=== PATIENT | female | born 2000 | race Caucasian/White ===

== ENCOUNTER 2018-02-04 19:31 | Emergency (ER) | payer MEDICAID, SELFPAY ==
[2018-02-04 19:32] VITALS: BP 125/74; PULSE 85; RESP 18; TEMP 37.6; O2SAT 100; BMI 21.0
--- NOTE | 2018-02-04 22:05 | ED.VISSUMM ---
- ER Visit Summary Date of Service: 02/04/18 Chief Complaint: Sore throat History of Present Illness: The patient is a 17 F presenting with sore throat. She states this started 3 days ago. She has painful swallowing but no difficulty swallowing. She has tried Advil at home. She has subjective fevers. She denies rhinorrhea. She has bilateral ear pain. Denies other complaints. Physical Examination: Vitals are stable. Patient is afebrile. Alert no acute distress. HEENT exam pharyngeal erythema with no exudate. Uvula is midline. TMs are normal bilaterally. Neck is supple. No meningismus Lungs are clear and equal bilaterally. Heart is regular rate and rhythm. Abdomen is soft nontender nondistended. Extremities are unremarkable. Skin is warm and dry. No rash No focal neurologic deficit. Remainder of exam is unremarkable. Emergency Department Course and Treatment: Rapid strep is positive. She is given Bicillin IM. She is given Decadron p.o. She is advised to follow Dr. Webber organisational psychologist for no doc. Advised return ED if worsening complaints. Disposition: Discharge home Impression: Strep pharyngitis This note was generated with [employer] dictation software. It may contain incorrect words, spelling, and punctuation that were not noted in review of the chart prior to signing ED Disposition - Plan for ED Patient: Chief Complaint: Sore Throat Referrals: Care Physician,No Primary [Primary Care Provider] -
--- NOTE | 2018-02-04 22:07 | ED.DEP ---
ED Disposition - Plan for ED Patient: Chief Complaint: Sore Throat Instructions: ED Strep Pharyngitis Conf Referrals: Care Physician,No Primary [Primary Care Provider] - Shruthi Webber MD [COURTESY STAFF PHYSICIAN] -
[2018-02-04] MEDS: Penicillin G Benzathine 1.2 MU/2 ML Syringe IM (22:12)
[2018-02-04 22:16] VITALS: BP 119/79; PULSE 78; RESP 16; O2SAT 99
== END 2018-02-04 22:37 | disposition home or self-care (01) ==
LOC: ED 21:06
PROVIDERS: Emergency Provider Emergency Medicine
DX: J02.0 Streptococcal pharyngitis (principal); Z72.0 Tobacco use
CPT/HCPCS: 87880; 96372; 99283

== ENCOUNTER 2018-04-30 21:40 | Emergency (ER) | payer MEDICAID, SELFPAY ==
[2018-04-30 21:41] VITALS: BP 116/70; PULSE 68; RESP 14; TEMP 36.9; O2SAT 99; BMI 20.5
--- NOTE | 2018-04-30 22:55 | ED.RN ---
PT NAME CALLED TWICE. NO RESPONSE. CHECKED OUTSIDE. PT NOT THERE.
== END 2018-04-30 23:22 | disposition left against medical advice (07) ==
LOC: ED 23:15
PROVIDERS: Emergency Provider Emergency Medicine
DX: M54.9 Dorsalgia, unspecified (principal); Z53.21 Procedure and treatment not carried out due to patient leaving prior to being seen by health care provider

== ENCOUNTER 2018-09-18 20:50 | Emergency (ER) | payer SELFPAY ==
[2018-09-18 20:52] VITALS: BP 120/73; PULSE 87; RESP 14; TEMP 36.7; O2SAT 100; BMI 25.6
[2018-09-18 21:29] LABS: Absolute Lymphocyte Count 2.24 X10^3/ul (0.83-4.51); Absolute Neutrophil Count 7.3 X10^3/uL (2.0-7.7); Basophil# 0.04 X10^3/uL; Basophil% 0.4 % (0-1); Eosinophil# 0.14 X10^3/uL; Eosinophils% 1.3 % (0-5); Hematocrit 42.3 % (37-47); Hemoglobin 14.7 g/dl (12.0-15.0); Lymphocyte # 2.24 X10^3/ul (4.0); Mean Corp Hgb Conc 34.8 g/gl (32-36); Mean Corpuscular Hgb 30.6 pg (27.0-32.0); Mean Corpuscular Volume 88.1 fL (81-99); Mean Platelet Vol. 10.2 fl (6.2-12.0); Monocyte# 0.91 X10^3/uL; Monocyte% 8.5 % (0-10); Neutrophil # 7.32 X10^3/uL (2.7-7.7); Neutrophil % 68.7 % (47-70); Platelet Count 240 K/mm3 (150-450); RBC Distribution Width CV 12.8 % (11.6-14.6); RBC Distribution Width SD 40.9 fl (35.1-43.9); White Blood Count 10.7 K/mm3 (4.4-11.0)
[2018-09-18 21:30] LABS: POSITIVE COUNT NO; POSITIVE DIFFERENTIAL NO; POSITIVE MORPHOLOGY NO
[2018-09-18 21:41] LABS: Anion Gap 8 (5-15); BUN 19 mg/dL (7-18); Calcium,Total 8.7 mg/dL (8.5-10.1); Chloride 110 mmol/L (98-107); Creatinine, Serum 0.86 mg/dL (0.55-1.02); EST Glomerular Filtration Rate 89 mL/min (>60); Est Glom Filt Rate - Afr Amer 108 mL/min (>60); Estimated Creatinine Clearance 90.11 ml/min; Glucose 106 mg/dL (74-106); Potassium 4.2 mmol/L (3.5-5.1); Sodium Level 144 mmol/L (136-145)
[2018-09-18 22:05] LABS: Pregnancy, Serum, hCG Quali. NEGATIVE Negative (0-9 Nonpreg)
[2018-09-18] MEDS: HYDROcodone Bitartrate/Apap 5/325 Tablet PO ×2 (22:48→23:27)
[2018-09-18 22:49] VITALS: BP 111/85; BP 118/63; BP 119/83; PULSE 71; PULSE 81; PULSE 87
[2018-09-18 22:58] LABS: Mucous, Urine 0 SEEN /hpf (<or=2+); Red Blood Cells-Urine 0 SEEN /hpf (0-5); Squamous Epithelial Cells - UA 0 SEEN /hpf (5-10); White Blood Cells 0 SEEN /hpf (0-5)
[2018-09-18 23:02] LABS: Color, Urine Yellow (Yellow); Glucose, Dipstick Normal (Normal); Ketone-Dipstick Negative (Negative); Leukocyte Esterase-Dipstick Negative /ul (Negative); Nitrite-Dipstick Positive (Negative); Occult Blood-Urine 150 /ul (Negative); Protein-Dipstick Negative (Negative); Urine Bilirubin Dipstick Negative (Negative); Urine Clarity Clear (Clear); Urine Urobilinogen Normal (Normal)
[2018-09-18 23:08] LABS: Bacteria 3+ /hpf (None Seen)
--- NOTE | 2018-09-18 23:19 | ED.DCSUM_ITS ---
- ER Visit Summary Date of Service: 09/18/18 Chief Complaint: [Vaginal bleeding] History of Present Illness: The patient is a 18 F [presents the emergency department complaint vaginal bleeding that started yesterday. Patient states that she is been going through a tampon about every hour and 1/2-2 hours. Patient passing some small clots. She describes some lower abdominal pain and back pain. Patient does complain of some urinary frequency as well. Patient states that she had a miscarriage in May of this year. Patient had been on control but stopped taking it in November of this year. She is not sure when her last period was but she states that she really has not been having periods. Patient denies any fevers. Patient does not know if she is . She denies any abnormal vaginal discharge.] Patient denies any vaginal trauma. She rates her pain currently as a 7 out of 10. Physical Examination: [HEENT-PERRLA, EOMI. Cranial nerves II through XII grossly intact. TMs clear. Mucous membranes moist. No adenopathy. Cardiovascular-regular rate and rhythm without murmur or ectopy Lungs-clear to auscultation, chest wall stable without crepitus or subcu emphysema Abdomen-normoactive bowel sounds, soft. Patient has some mild suprapubic tenderness to palpation. There is no rebound, rigidity, or perineal signs. Extremities-intact ?4, normal range of motion, normal pulses, atraumatic] Test Results: [CBC with differential obtained showed a white count 10.7, hemoglobin 14.7, hematocrit 42, platelets 240. Chemistries unremarkable. HCG was negative. Urinalysis was positive for nitrites as well as +3 bacteria but negative for leukocyte esterase and 0 WBCs]. Orthostatic vital signs were negative. Emergency Department Course and Treatment: [Patient was given 1 [place] p.o. Patient was started on Bactrim. A urine culture was sent. Treatment Plan: [Given the patient having frequency and nursing staff stated that the urine did appear cloudy and patient also complaining of some low back pain will cover with 3 days worth of Bactrim.] Disposition: [Discharged home in stable condition. Patient advised to follow-up with Dr. Anabel Cortez within the next 3-5 days. Patient advised to return if persistent heavy bleeding, fever, vomiting, worsening abdominal pain, or condition should worsen anyway.] Impression: [Dysfunctional uterine bleeding UTI] This note was generated with [employer] dictation software. It may contain incorrect words, spelling, and punctuation that were not noted in review of the chart ivonne or to signing ED Disposition - Plan for ED Patient: Chief Complaint: Vag Bleeding Referrals: Care Physician,No Primary [Primary Care Provider] -
--- NOTE | 2018-09-18 23:19 | ED.DEP ---
ED Disposition - Plan for ED Patient: Chief Complaint: Vag Bleeding Instructions: ED Bleed Irregular Vaginal, ED UTI Cystitis Female Prescriptions: Smz/Tmp Ds [Bactrim Ds] 1 tab PO BID #6 tab Referrals: Care Physician,No Primary [Primary Care Provider] - Anabel Cortez MD [STAFF PHYSICIAN] - 3-5 Days
[2018-09-18] MEDS: Smz/Tmp Ds Tablet 1 TABLET PO (23:26)
--- NOTE | 2018-09-18 23:44 | ED.RN ---
PT GIVEN WRITTEN AND VERBAL DISCHARGE INSTRUCTIONS AND HOME GOING PRESCRIPTIONS. PT EDUCATED NOT TO DRIVE WHEN TAKING [place]. PT VERBALIZES UNDERSTANDING AND DENIES ANY FURTHER QUESTIONS. PT IV D/C AND COVERED WITH 2X2 GAUZE AND PAPER TAPE. PT AMBULATES OUT OF DEPT WITH SISTER AND BOYFRIEND.
--- OUTSIDE RECORDS SUMMARY | 2018-12-21 06:33 | XMS RPT_ITS ---
:2000 Author Organization OHIP Care Team Providers Name Role Phone ZEUS LOZADA Attending Unavailable PHYSICIAN, NOT RECORDED Primary Care Unavailable ROSE MARY MARINELLI DO Consulting Unavailable LOZADAZEUS Camacho Attending Unavailable PHYSICIAN, NOT RECORDED Primary Care Unavailable LOZADAZEUS Camacho Attending Unavailable PHYSICIAN, NOT RECORDED Primary Care Unavailable Primay Care Physicia, No Primary Care Unavailable Yuan iNchols Attending Unavailable Primay Care Physicia, No Primary Care Unavailable Fei Soni Attending Unavailable Primay Care Physicia, No Primary Care Unavailable Calli Hernández Attending Unavailable PROBLEMS PROBLEMS No Problem Records FoundPROCEDURES PROCEDURES No Procedure Records FoundRESULTS RESULTS DISCHARGE INSTRUCTION Observed: 09/18/2018 Status: F Source: [place] 11:20 PM [facility] REPOSITORY [facility] Medical Records Department [address] [place] [address] Discharge Instruction 09/18/18 2319 MR#: [id number] Acct: [id number] Name: LASHELL ANGUIANO Rep #: [id number] : 2000 18 From: Yuan Nichols DO PCP: Care Physician, No Primary Status: REG ER ED Disposition - Plan for ED Patient: Chief Complaint: Vag Bleeding Instructions: ED Bleed Irregular Vaginal, ED UTI Cystitis Female Prescriptions: Smz/Tmp Ds [Bactrim Ds] 1 tab PO BID #6 tab Referrals: Care Physician,No Primary [Primary Care Provider] - Anabel Cortez MD [STAFF PHYSICIAN] - 3-5 Days What to do if you have Problems For any increased pain, shortness of breath, bleeding, nausea or vomiting, chest pain, or any unexpected problems, contact your Primary Care Provider. Call [facility] ([phone]) or report to the closest Emergency Room. Call 911 if necessary. 09/18/180 <Electronically signed by Yuan Nichols DO> Date Yuna Nichols DO Cosigner Signature (If Indicated): Date CC: No Primary Care Physician EMERGENCY DEPARTMENT Observed: 09/18/2018 Status: F Source: [place] SUMMARY 11:19 PM [facility] REPOSITORY [facility] Medical Records Department [address] [place] [address] Emergency Department Summary 09/18/18 2315 MR#: [id number] Acct: [id number] Name: LASHELL ANGUIANO Rep #: [id number] : 2000 18 From: Yuan Nichols DO PCP: Jessica Physician, No Primary Status: REG ER - ER Visit Summary Date of Service: 09/18/18 Chief Complaint: [Vaginal bleeding] History of Present Illness: The patient is a 18 F [presents the emergency department complaint vaginal bleeding that started yesterday. Patient states that she is been going through a tampon about every hour and 1/2-2 hours. Patient passing some small clots. She describes some lower abdominal pain and back pain. Patient does complain of some urinary frequency as well. Patient states that she had a miscarriage in May of this year. Patient had been on control but stopped taking it in November of this year. She is not sure when her last period was but she states that she really has not been having periods. Patient denies any fevers. Patient does not know if she is . She denies any abnormal vaginal discharge.] Patient denies any vaginal trauma. She rates her pain currently as a 7 out of 10. Physical Examination: [HEENT-PERRLA, EOMI. Cranial nerves II through XII grossly intact. TMs clear. Mucous membranes moist. No adenopathy. Cardiovascular-regular rate and rhythm without murmur or ectopy Lungs-clear to auscultation, chest wall stable without crepitus or subcu emphysema Abdomen-normoactive bowel sounds, soft. Patient has some mild suprapubic tenderness to palpation. There is no rebound, rigidity, or perineal signs. Extremities-intact 4, normal range of motion, normal pulses, atraumatic] Test Results: [CBC with differential obtained showed a white count 10.7, hemoglobin 14.7, hematocrit 42, platelets 240. Chemistries unremarkable. HCG was negative. Urinalysis was positive for nitrites as well as +3 bacteria but negative for leukocyte esterase and 0 WBCs]. Orthostatic vital signs were negative. Emergency Department Course and Treatment: [Patient was given 1 [place] p.o. Patient was started on Bactrim. A urine culture was sent. Treatment Plan: [Given the patient having frequency and nursing staff stated that the urine did appear cloudy and patient also complaining of some low back pain will cover with 3 days worth of Bactrim.] Disposition: [Discharged home in stable condition. Patient advised to follow-up with Dr. Anabel Cortez within the next 3-5 days. Patient advised to return if persistent heavy bleeding, fever, vomiting, worsening abdominal pain, or condition should worsen anyway.] Impression: [Dysfunctional uterine bleeding UTI] This note was generated with Brandtologyation software. It may contain incorrect words, spelling, and punctuation that were not noted in review of the chart prior to signing ED Disposition - Plan for ED Patient: Chief Complaint: Vag Bleeding Referrals: Care Physician,No Primary [Primary Care Provider] - What to do if you have Problems For any increased pain, shortness of breath, bleeding, nausea or vomiting, chest pain, or any unexpected problems, contact your Primary Care Provider. Call [facility] ([phone]) or report to the closest Emergency Room. Call 911 if necessary. 09/18/18 0669 <Electronically signed by Yuan Nichols DO> Date Yuan Nichols DO Cosigner Signature (If Indicated): Date CC: No Primary Care Physician URINALYSIS, COMPLETE Collected: 09/18/2018 Status: F Source: [place] 10:50 PM [facility] REPOSITORY Order Comment: How was Urine Obtained? REALTIME COURT REPORTER TO SPECIFY TYPE CODE TESTS RESULT OUT OF RANGE REFERENCE UNITS LAB L400.3000 Yellow COLOR Normal Yellow LAB L400.3050 Clear Normal CLARITY Clear LAB L400.3200 Normal mg/dl Normal GLUCOSE, UR Normal LAB L400.3300 Negative mg/dL Normal BILIRUBIN URINE Negative LAB L400.3400 Negative mg/dl Normal KETONE UR Negative LAB L400.3465 1.002-1.030 Normal SP.GR. DIPSTX 1.020 LAB L400.3550 5.0 - 8.0 pH UR Normal 6.0 LAB L400.3600 Negative mg/dl PROT Normal DIPSTX Negative LAB L400.3700 Normal mg/dl Normal UROBILI Normal LAB L400.3750 Negative High NITRITE UR Positive LAB L400.3780 Negative /ul High OCCULT BLOOD-UR 150 LAB L400.3800 Negative /ul LEUK Normal ESTERASE Negative LAB L400.4050 0-5 /hpf WBC 0 Normal SEEN LAB L400.4100 0-5 /hpf 0 Normal RBC-UA SEEN LAB L400.4150 5-10 /hpf SQUAM 0 Normal EPI SEEN LAB L400.4300 None Seen /hpf 3+ Normal BACTERIA LAB L400.4350 <or=2+ /hpf 0 Normal MUCUS, URINE SEEN Performed By: #### L400.0001 #### [facility] [address] [place], [address] Observed: 09/18/2018 Status: F Source: [place] CULTURE, URINE 10:50 PM [facility] REPOSITORY Order Date: 09/18/18 Urine Culture ORGANISM 1: Presumptive E. coli [place] Count >100,000 Presumptive E. coli: REACTION Amoxacillin/Clavulanic Acid $ 16 I Ampicillin $ >=32 R Ampicillin/Sulbactam $ >=32 R Cefazolin $ <=4 S Cefepime $ <=1 S Ceftriaxone $ <=1 S Ciprofloxacin $ <=0.25 S ESBL - Ertapenim $$$ <=0.5 S Gentamicin $ <=1 S Imipenem *NF <=0.25 S Levofloxacin $ <=0.12 S Nitrofurantoin $ <=16 S Piperacillin/Tazobactam $$ <=4 S Tobramycin $ <=1 S Trimethoprim/Sulfametho $ <=20 S (NF) indicates non-formulary drug at [facility]. Approval by Infectious Disease Specialist required before non-formulary drugs may be ordered and/or dispensed. Performed By: #### M100.0650 #### [facility] [address] [place], [address] CBC W/DIFF, AUTOMATED Collected: 09/18/2018 Status: F Source: [place] 9:16 PM [facility] REPOSITORY TYPE CODE TESTS RESULT OUT OF RANGE REFERENCE UNITS LAB L100.1000 4.4-11.0 K/mm3 Normal WBC 10.7 LAB L100.1200 4.2-5.4 M/mm3 Normal RBC 4.80 LAB L100.1300 12.0-15.0 g/dl Normal HGB 14.7 LAB L100.1400 37-47 % Normal HCT 42.3 LAB L100.1500 81-99 fL Normal MCV 88.1 LAB L100.1600 27.0-32.0 pg Normal MCH 30.6 LAB L100.1700 32-36 g/gl Normal MCHC 34.8 LAB L100.1810 11.6-14.6 % Normal RDW CV 12.8 LAB L100.1820 35.1-43.9 fl Normal RDW SD 40.9 LAB L100.1900 150-450 K/mm3 Normal PLT 240 LAB L100.2000 6.2-12.0 fl Normal MPV 10.2 LAB L100.2100 47-70 % Normal NEUT% 68.7 LAB L100.2200 19-41 % Normal LY% 21.0 LAB L100.2300 0-10 % Normal MONO% 8.5 LAB L100.2400 0-5 % Normal EO% 1.3 LAB L100.2500 0-1 % Normal BASO% 0.4 LAB L100.2550 0.0-0.9 % Normal IM GRAN % 0.100 Result Comment: IG% - Immature Granulocytes (promyelocytes, myelocytes and metamyelocytes) > 1% indicates that a LEFT SHIFT is Present. LAB L100.2620 2.0-7.7 X10 3/uL Normal Absolute Neut 7.3 LAB L100.2720 0.83-4.51 X10 3/ul Normal Absolute Lymph 2.24 Performed By: #### L100.0100 #### [facility] [address] [place], [place], [address] BASIC METABOLIC Collected: 09/18/2018 Status: F Source: [place] PROFILE (BMP) 9:16 PM [facility] REPOSITORY TYPE CODE TESTS RESULT OUT OF RANGE REFERENCE UNITS LAB L501.0100 74-106 mg/dL Normal GLU 106 Result Comment: Fasting Glucose result from 100 to 125 mg/dL suggests IMPAIRED HOMEOSTASIS per A.D.A. criteria. Please note revised GLUCOSE reference range effective 2017. LAB L501.1000 7-18 mg/dL High BUN 19 LAB L501.1100 0.55-1.02 mg/dL Normal CREAT,SERUM 0.86 Result Comment: The validity of the calculated GFR AND GFRAA in patients over 70 years has not been determined. Clinical correlation is essential. LAB L501.1110 >60 mL/min Normal EST GFR 89 Result Comment: Non- GFR Calc LAB L501.1115 >60 mL/min Normal EST GFR - AA 108 Result Comment: GFR Calc LAB L501.1255 ml/min Normal Estimated CRCL 90.11 LAB L501.1300 10-20 RATIO High BUN/CRE 22.0 LAB L501.2200 8.5-10 mg/dL Normal .1 CA 8.7 LAB L501.5300 136-14 mmol/L Normal 5 NA 144 LAB L501.5600 3.5-5. mmol/L Normal 1 K 4.2 LAB L501.5900 98-107 mmol/L High CL 110 LAB L501.6100 21.0-3 mmol/L Normal 2.0 CO2 26.0 LAB L501.6200 5-15 Normal GAP 8 Performed By: #### L500.2500 #### [facility] [address] [facility] [place], [address] ,SERUM,HCG QUALI. Collected: Status: F Source: [place] 09/18/2018 9:16 PM [facility] REPOSITORY TYPE CODE TESTS RESULT OUT OF REFERENCE UNITS RANGE LAB L700.6700 =>Qualitative mIU/mL Normal HCG Qual < 1 triggr LAB L700.7000 0-9 Nonpreg Negative Normal HCGSQUAL NEGATIVE Performed By: #### L700.6800 #### [facility] [address] [facility] [place], [address] PROGRESS Observed: 08/25/2018 Status: COMPLETED Source: [place] 2:50 PM [facility] REPOSITORY HNO ID: [id number] Author: Maria Elena Kirk) William Service: (none) Author Type: Physician Information Technology Specialist Type: Progress Notes Filed: 08/25/2018 3:38 PM Note Text: Subjective HPI Patient presents with dysuria and frequency over the past 4 days. She denies any vaginal discharge or drainage. She is sexually active and her partner is here in the room. She denies any concern for STI. They're not using any protection. She denies vomiting or diarrhea. No back pain. No abdominal pain. No fevers. She has not had a UTI in the past. She is not sure when her last menstrual cycle was, it has been longer than one month. There is a chance she could be . Review of Systems Constitutional: Negative. HENT: Negative. Eyes: Negative. Respiratory: Negative. Cardiovascular: Negative. Gastrointestinal: Negative. Genitourinary: Positive for dysuria, frequency and urgency. Negative for flank pain and hematuria. Musculoskeletal: Negative. Skin: Negative. All other systems reviewed and are negative. PAST MEDICAL HISTORY Diagnosis Date - PMH - PAST MEDICAL HISTORY OF 08/01/08 normal color vision - Trichotillomania Current Outpatient Prescriptions: nitrofurantoin monohydrate and macrocrystal (MACROBID) 100 mg capsule Take 1 capsule by mouth twice daily with meals for 7 days. Disp: 14 capsule Rfl: 0 No current facility-administered medications for this visit. PAST SURGICAL HISTORY Procedure Laterality Date - NONE FAMILY HISTORY Problem Relation Age of Onset - Diabetes Paternal Grandmother - Diabetes Paternal Grandfather - Emphysema Maternal Grandfather - other (epilepsy [Other]) Father - Heart Paternal Grandmother - Heart Paternal Grandfather - other (high cholesterol [Other]) Maternal Grandmother - other (Heart Attack [Other]) Maternal Grandfather - COPD Maternal Grandfather - Thyroid Maternal Grandmother - Osteoporosis Maternal Grandmother - other (luekemia [Other]) Paternal Uncle Social History Substance Use Topics - Smoking status: Never Smoker - Smokeless tobacco: Never Used - Alcohol use No BP 102/74 Pulse 78 Temp 36.6 ?C (97.9 ?F) (Left Tympanic) Resp 16 Wt 67.9 kg (149 lb 9.6 oz) SpO2 99% Objective Physical Exam Constitutional: She is oriented to person, place, and time and well-developed, well-nourished, and in no distress. HENT: Head: Normocephalic and atraumatic. Cardiovascular: Normal rate, regular rhythm and normal heart sounds. Pulmonary/Chest: Effort normal. Abdominal: Soft. Bowel sounds are normal. She exhibits no distension and no mass. There is no tenderness. There is no rebound and no guarding. Musculoskeletal: No cva tenderness Neurological: She is alert and oriented to person, place, and time. Skin: Skin is warm and dry. No rash noted. Psychiatric: Affect and judgment normal. Nursing note and vitals reviewed. ASSESSMENT/PLAN: 1. Dysuria - ICD9: 788.1, ICD10: R30.0 (primary diagnosis) acute - UA positive for claudia esterase and hematuria - Send urine for culture - Begin treatment with Macrobid 100 mg BID for 7 days - Patient education for prevention given -I offered to run gonorrhea and chlamydia testing off of her urine however patient declined this. - UA DIP, URINE (POC) - URINE CULTURE 2. Missed menses - ICD9: 626.4, ICD10: N92.6 test here is negative. I discussed if her menstrual cycle so does not come in the next week she may want to use another [id number] test and follow-up her DEAN OF INSTRUCTION. She is agreeable to this. - HCG QUAL UR B/O Maria Elena Phipps PA-C CNOV Observed: 08/25/2018 Status: COMPLETED Source: [place] 2:45 PM [facility] REPOSITORY Office Visit (WSTR) LASHELL ANGUIANO ([id number]) 2000 F Date Time Provider Department 08/25/18 2:45 PM MARIA ELENA PHIPPS (MASOOD) [facility] During your visit today, we recorded the following information about you: Temperature Pulse Respiration Blood pressure 97.9 degrees 78/minute 16/minute 102/74 Weight 67.9 kg Maria Elena Phipps PA-C 08/25/2018 3:38 PM Signed Subjective HPI Patient presents with dysuria and frequency over the past 4 days. She denies any vaginal discharge or drainage. She is sexually active and her partner is here in the room. She denies any concern for STI. They're not using any protection. She denies vomiting or diarrhea. No back pain. No abdominal pain. No fevers. She has not had a UTI in the past. She is not sure when her last menstrual cycle was, it has been longer than one month. There is a chance she could be . Review of Systems Constitutional: Negative. HENT: Negative. Eyes: Negative. Respiratory: Negative. Cardiovascular: Negative. Gastrointestinal: Negative. Genitourinary: Positive for dysuria, frequency and urgency. Negative for flank pain and hematuria. Musculoskeletal: Negative. Skin: Negative. All other systems reviewed and are negative. PAST MEDICAL HISTORY Diagnosis Date - PMH - PAST MEDICAL HISTORY OF 08/01/08 normal color vision - Trichotillomania Current Outpatient Prescriptions: nitrofurantoin monohydrate and macrocrystal (MACROBID) 100 mg capsule Take 1 capsule by mouth twice daily with meals for 7 days. Disp: 14 capsule Rfl: 0 No current facility-administered medications for this visit. PAST SURGICAL HISTORY Procedure Laterality Date - NONE FAMILY HISTORY Problem Relation Age of Onset - Diabetes Paternal Grandmother - Diabetes Paternal Grandfather - Emphysema Maternal Grandfather - other (epilepsy [Other]) Father - Heart Paternal Grandmother - Heart Paternal Grandfather - other (high cholesterol [Other]) Maternal Grandmother - other (Heart Attack [Other]) Maternal Grandfather - COPD Maternal Grandfather - Thyroid Maternal Grandmother - Osteoporosis Maternal Grandmother - other (luekemia [Other]) Paternal Uncle Social History Substance Use Topics - Smoking status: Never Smoker - Smokeless tobacco: Never Used - Alcohol use No BP 102/74 Pulse 78 Temp 36.6 ?C (97.9 ?F) (Left Tympanic) Resp 16 Wt 67.9 kg (149 lb 9.6 oz) SpO2 99% Objective Physical Exam Constitutional: She is oriented to person, place, and time and well-developed, well-nourished, and in no distress. HENT: Head: Normocephalic and atraumatic. Cardiovascular: Normal rate, regular rhythm and normal heart sounds. Pulmonary/Chest: Effort normal. Abdominal: Soft. Bowel sounds are normal. She exhibits no distension and no mass. There is no tenderness. There is no rebound and no guarding. Musculoskeletal: No cva tenderness Neurological: She is alert and oriented to person, place, and time. Skin: Skin is warm and dry. No rash noted. Psychiatric: Affect and judgment normal. Nursing note and vitals reviewed. ASSESSMENT/PLAN: 1. Dysuria - ICD9: 788.1, ICD10: R30.0 (primary diagnosis) acute - UA positive for claudia esterase and hematuria - Send urine for culture - Begin treatment with Macrobid 100 mg BID for 7 days - Patient education for prevention given -I offered to run gonorrhea and chlamydia testing off of her urine however patient declined this. - UA DIP, URINE (POC) - URINE CULTURE 2. Missed menses - ICD9: 626.4, ICD10: N92.6 test here is negative. I discussed if her menstrual cycle so does not come in the next week she may want to use another [id number]-qhi-mlymmrl test and follow-up her DEAN OF INSTRUCTION. She is agreeable to this. - HCG QUAL UR B/O Maria Elena Phipps PA-C Referring Provider: SELF [200] Allergies As of Date: 08/25/2018 (No Known Allergies) Date Reviewed: 08/25/2018 Reviewed by: Edna Conner Ma - Fully Assessed Reason for Visit: Acute Visit [896] Cmt: dysuria Primary Visit Diagnosis:Dysuria [R30.0] Other Visit Diagnosis:Missed menses [N92.6] Order(s):UA DIP, URINE (POC) [[id number]] Order #: [id number] #:[id number] URINE CULTURE [SQURCUL] Order #: [id number] HCG QUAL UR B/O [[id number]] Order #: [id number] nitrofurantoin monohydrate and macrocrystal (MACROBID) 100 mg capsuleTake 1 capsule by mouth twice daily with meals for 7 days.Disp: 14 capsuleRfl: 0 Prescriptions as of 08/25/2018 Sig: NITROFURANTOIN MONOHYDRATE AND * Take 1 capsule by mouth twice* Problem List As Of Date: 08/25/2018 (None) Prescriptions ordered this encounter Disp Refills Start End NITROFURANTOIN MONOHYDRATE AND MACROCR* 14 c* 0 08/25/2018 09/01/2018 Route: ORAL Sig: Take 1 capsule by mouth twice daily with meals for 7 days. Encounter Status:Closed by MARIA ELENA PHIPPS PA-C on 08/25/18 Observed: 08/25/2018 Status: F Source: [place] URINE CULTURE 2:02 PM [facility] REPOSITORY Sp. Request/Comment: - Specimen received in preservative Culture Result - 10,000 - <50,000 CFU/ml Lactose positive gram negative bacilli --> ABNORMAL ALERT Insignificant colony count. No further workup. --> ABNORMAL ALERT 10,000 - <50,000 CFU/ml Normal urogenital tiana Performed By: #### URCUL #### [facility] [address] [place], [place] [address] HCGQ Collected: 05/05/2018 Status: F Source: [facility] 10:51 AM [facility] REPOSITORY Order Comment: please call Dr Rose Mary Marinelli with results TYPE CODE TESTS RESULT OUT OF REFERENCE UNITS RANGE LAB HCGQ(LOINC mIU/mL ) hCG, quantitative 965.0 Result Comment: HCG Quantitative 3 Weeks Gestation mIU/mL 5.0 to 12.0 HCG Quantitative 4 Weeks Gestation mIU/mL 10.0 to 708.0 HCG Quantitative 5 Weeks Gestation mIU/mL 217.0 to 8245.0 HCG Quantitative 6 Weeks Gestation mIU/mL 152.0 to 32,177.0 HCG Quantitative 7 Weeks Gestation mIU/mL 4059.0 to 153,767.0 HCG Quantitative 8 Weeks Gestation mIU/mL 31,366.0 to 149,094.0 HCG Quantitative 9 Weeks Gestation mIU/mL 59,109.0 to 135,901.0 HCG Quantitative 10 Weeks Gestation mIU/mL 44,186.0 to 170,409.0 HCG Quantitative 12 Weeks Gestation mIU/mL 27,107.0 to 201,615.0 HCG Quantitative 14 Weeks Gestation mIU/mL 24,302.0 to 93,646.0 Performed By: #### HCGQ #### [address] [address] HCGQ Collected: 05/04/2018 Status: F Source: [facility] 9:15 AM [facility] REPOSITORY Order Comment: please page Dr. Rose Mary Marinelli with results TYPE CODE TESTS RESULT OUT OF REFERENCE UNITS RANGE LAB HCGQ(LOINC mIU/mL ) hCG, quantitative 1888.0 Result Comment: HCG Quantitative 3 Weeks Gestation mIU/mL 5.0 to 12.0 HCG Quantitative 4 Weeks Gestation mIU/mL 10.0 to 708.0 HCG Quantitative 5 Weeks Gestation mIU/mL 217.0 to 8245.0 HCG Quantitative 6 Weeks Gestation mIU/mL 152.0 to 32,177.0 HCG Quantitative 7 Weeks Gestation mIU/mL 4059.0 to 153,767.0 HCG Quantitative 8 Weeks Gestation mIU/mL 31,366.0 to 149,094.0 HCG Quantitative 9 Weeks Gestation mIU/mL 59,109.0 to 135,901.0 HCG Quantitative 10 Weeks Gestation mIU/mL 44,186.0 to 170,409.0 HCG Quantitative 12 Weeks Gestation mIU/mL 27,107.0 to 201,615.0 HCG Quantitative 14 Weeks Gestation mIU/mL 24,302.0 to 93,646.0 Performed By: #### HCGQ #### [address] [address] ABO/RH RETYPE GEL Collected: 05/03/2018 Status: F Source: [facility] 5:29 AM [facility] REPOSITORY Order Comment: Ordered by Discern TYPE CODE TESTS RESULT OUT OF RANGE REFERENCE UNITS LAB CD:[id number](LOINC) Unknown ABO/Rh O POS Retype Gel Performed By: #### ABORG #### [facility] [address] [place], [place] [address] CTPCR Collected: 05/03/2018 Status: F Source: [facility] 4:09 AM [facility] REPOSITORY TYPE CODE TESTS RESULT OUT OF RANGE REFERENCE UNITS LAB SCCTPCR(LO INC) Chlam Cervix Source LAB CTPCR1(CALVIN Negative NC) Unknown Positive C.trachomati s PCR Result Comment: Molecular (PCR) assay performed on the [employer] Jaclyn 4800 system. LAB CTINT(LOINC) See CT Unknown Interp N C. trachomatis Interp Result Comment: DNA detection by non-culture technique (PCR). Sensitivity testing not available with this method. This organism causes a reportable disease Results have been reported to the [place] [facility] See CT Interp P Performed By: #### CTPCR, NGPCR1 #### [address] [address] NGPCR Collected: 05/03/2018 Status: F Source: [facility] 4:09 AM [facility] REPOSITORY TYPE CODE TESTS RESULT OUT OF REFERENCE UNITS RANGE LAB GCSRC(LOIN C) GC PCR Source Cervix LAB NGPCR(LOIN Negative C) N. gonorrhoeae (PCR) Negative Result Comment: Molecular (PCR) assay performed on the [employer] Jaclyn 4800 System. LAB NGINT(LOINC) See NG Interp N N. gonorrhoeae Interp Result Comment: N. gonorrhoeae DNA not detected. Specimen is presumptive negative for N. gonorrhoeae. A negative result does not preclude Neisseria gonorrhoeae infection because results depend on adequate specimen collection, absence of inhibitors, and sufficient DNA to be detected. See NG Interp N Performed By: #### CTPCR, NGPCR1 #### [place] [address] Observed: 05/03/2018 Status: F Source: [facility] VAGDNA 4:09 AM [facility] REPOSITORY . MICRO - Microbiology PROCEDURE: Affirm Pathogens DNA Direct Probe [*1] SOURCE: Vaginal Fluid BODY SITE: Vagina COLLECTED DATE/TIME: 05/03/2018 04:09 EDT RECEIVED DATE/TIME: 05/03/2018 15:41 EDT START DATE/TIME: 05/03/2018 15:42 EDT FREE TEXT SOURCE: FINAL REPORTS Final Report [] Verified Date/Time/Personnel: 05/04/2018 13:07 EDT Julisa species DNA Probe Negative Trichomonas vaginalis DNA Probe Negative Gardnerella vaginalis DNA Probe Negative Performing Locations *1: This test was performed at: [address], [address] [place] [address] Performed By: #### AFFIRM #### [place] [address] CBC Collected: 05/03/2018 Status: F Source: [facility] 3:47 AM [facility] REPOSITORY TYPE CODE TESTS RESULT OUT OF REFERENCE UNITS RANGE LAB WBC(LOINC) 4.60-10.80 10 3/mcL High WBC 15.50 LAB RBCCT(LOINC 4.20-5.40 10 6/mcL ) RBC 4.46 LAB HGB(LOINC) 12.0-16.0 G/dL Hgb 13.6 LAB HCT(LOINC) 37.0-47.0 % Hct 39.1 LAB MCV(LOINC) 80.0-94.0 fL MCV 87.6 LAB MCH(LOINC) 27.0-31.2 pg MCH 30.6 LAB MCHC(LOINC) 33.0-37.0 G/dL MCHC 34.9 LAB RDW(LOINC) 11.5-14.5 % RDW 14.0 LAB PLT(LOINC) 130-400 10 3/mcL Platelet 227 LAB MPV(LOINC) 7.4-10.4 fL MPV 8.6 Performed By: #### CBC, ADIFF, ANEU, ABOG, ANSG #### [address] [address] #### HCGQ #### [address] [address] .AUTO DIFF Collected: 05/03/2018 Status: F Source: [facility] 3:47 AM [facility] REPOSITORY TYPE CODE TESTS RESULT OUT OF REFERENCE UNITS RANGE LAB ROXANE(LOINC) 37.0-80.0 % Neutrophil % 75.4 LAB LYM(LOINC) 10.0-50.0 % Lymphocyte % 13.9 LAB MON(LOINC) 1.7-13.0 % Monocyte % 9.0 LAB EO(LOINC) 0.0-7.0 % Eosinophil % 1.0 LAB BAS(LOINC) 0.0-2.5 % Basophil % 0.7 LAB ABLYM(LOIN 0.77-3.85 10 3/mcL C) Lymphocyte, 2.20 Absolute LAB ROBBI(LOINC 0.15-1.00 10 3/mcL ) High Monocyte, 1.40 Absolute LAB AEOS(LOINC 0.00-0.40 10 3/mcL ) Eosinophil, 0.20 Absolute LAB ABAS(LOINC 0.00-0.19 10 3/mcL ) Basophil, 0.10 Absolute Performed By: #### CBC, ADIFF, ANEU, ABOG, ANSG #### [place] [address] #### HCGQ #### [place] [address] .NEUABS Collected: 05/03/2018 Status: F Source: [facility] 3:47 AM [facility] REPOSITORY TYPE CODE TESTS RESULT OUT OF REFERENCE UNITS RANGE LAB ANEU(LOINC) 2.85-6.16 10 3/mcL High Neutrophil, 11.70 Absolute Performed By: #### CBC, ADIFF, ANEU, ABOG, ANSG #### [address] [address] #### HCGQ #### [place] [address] GEL ABO Collected: 05/03/2018 Status: F Source: [facility] 3:47 AM [facility] REPOSITORY TYPE CODE TESTS RESULT OUT OF RANGE REFERENCE UNITS LAB ABORH(LOINC ) Unknown ABO/Rh O POS Interp Performed By: #### CBC, ADIFF, ANEU, ABOG, ANSG #### [address] [address] #### HCGQ #### [facility] [address] [place] [address] GEL ABS Collected: 05/03/2018 Status: F Source: [facility] 3:47 AM [facility] REPOSITORY TYPE CODE TESTS RESULT OUT OF REFERENCE UNITS RANGE LAB ANSG(LOINC ) Antibody Negative ABSC Screen Gel Performed By: #### CBC, ADIFF, ANEU, ABOG, ANSG #### [address] [address] #### HCGQ #### [facility] [address] [place] [address] HCGQ Collected: 05/03/2018 Status: F Source: [facility] 3:47 [facility] REPOSITORY TYPE CODE TESTS RESULT OUT OF REFERENCE UNITS RANGE LAB HCGQ(LOINC mIU/mL ) hCG, quantitative 7901.0 Result Comment: HCG Quantitative 3 Weeks Gestation mIU/mL 5.0 to 12.0 HCG Quantitative 4 Weeks Gestation mIU/mL 10.0 to 708.0 HCG Quantitative 5 Weeks Gestation mIU/mL 217.0 to 8245.0 HCG Quantitative 6 Weeks Gestation mIU/mL 152.0 to 32,177.0 HCG Quantitative 7 Weeks Gestation mIU/mL 4059.0 to 153,767.0 HCG Quantitative 8 Weeks Gestation mIU/mL 31,366.0 to 149,094.0 HCG Quantitative 9 Weeks Gestation mIU/mL 59,109.0 to 135,901.0 HCG Quantitative 10 Weeks Gestation mIU/mL 44,186.0 to 170,409.0 HCG Quantitative 12 Weeks Gestation mIU/mL 27,107.0 to 201,615.0 HCG Quantitative 14 Weeks Gestation mIU/mL 24,302.0 to 93,646.0 Performed By: #### CBC, ADIFF, ANEU, ABOG, ANSG #### [address] [address] #### HCGQ #### [place] [id number] [place] [address] PREGU Collected: 05/03/2018 Status: F Source: [facility] 3:19 AM [facility] REPOSITORY TYPE CODE TESTS RESULT OUT OF RANGE REFERENCE UNITS LAB PREGU(LOIN C) Test Positive Urine LAB PRUG1(LOIN C) Unknown test HCG detected. (u) int Performed By: #### PREGU, UA, UAMICAO #### [address] [address] UA Collected: 05/03/2018 Status: F Source: [facility] 3:19 [facility] REPOSITORY TYPE CODE TESTS RESULT OUT OF RANGE REFERENCE UNITS LAB SPCUA(CALVIN NC) UA Specimen Type Clean Catch LAB CLRUA(CALVIN NC) UA Color Yellow LAB APPUA(CAL[place] Clear NC) UA Appear Unknown Cloudy LAB SGUA(LOIN C) UA Spec Grav 1.020 LAB GLUA(LOIN Negative mg/dL C) UA Glucose Negative LAB BILUA(CALV[place] Negative NC) UA Bili Negative LAB KETUA(CALVIN Negative mg/dL NC) UA Ketones Negative LAB BLDUA(CALV[place] Negative NC) UA Blood Unknown Large LAB PHUA(LOIN C) UA pH 6.5 LAB PROUA(CALVIN Negative mg/dL NC) UA Protein Negative LAB UROUA(CALV[place] E.U./dL NC) UA Urobilinogen 0.2 LAB NITUA(CALVIN Negative NC) UA Nitrite Negative LAB LEUUA(CALVIN Negative NC) UA Leuk Est Negative Performed By: #### PREGU, UA, UAMICAO #### [address] [address] .URINALYSIS MICROSCOPIC Collected: 05/03/2018 Status: F Source: [place] ([place]) 3:19 AM [facility] EMERGENCY DEPARTMENT REPOSITORY TYPE CODE TESTS RESULT OUT OF RANGE REFERENCE UNITS LAB WBCUA(LOIN None Seen /hpf C) Unknown UA WBC 0-5 LAB RBCUA(LOIN None Seen /hpf C) Unknown UA RBC LOADED LAB EPIUA(LOIN None Seen /hpf C) Unknown UA Squam Epithelial 0-5 LAB AMOUA(LOIN /hpf C) UA Amorphus 2+ Performed By: #### PREGU, UA, UAMICAO #### [place] [address] [place], [place] [address] EMERGENCY DEPARTMENT Observed: 02/04/2018 Status: F Source: [place] SUMMARY 10:07 PM [facility] REPOSITORY [facility] Medical Records Department [address] [place] [address] Emergency Department Summary 02/04/18 2205 MR#: [id number] Acct: [id number] Name: LASHELL REYES Rep #: [id number] : 2000 17 From: Calli Hernández MD PCP: Jessica Physician, No Primary Status: REG ER - ER Visit Summary Date of Service: 02/04/18 Chief Complaint: Sore throat History of Present Illness: The patient is a 17 F presenting with sore throat. She states this started 3 days ago. She has painful swallowing but no difficulty swallowing. She has tried Advil at home. She has subjective fevers. She denies rhinorrhea. She has bilateral ear pain. Denies other complaints. Physical Examination: Vitals are stable. Patient is afebrile. Alert no acute distress. HEENT exam pharyngeal erythema with no exudate. Uvula is midline. TMs are normal bilaterally. Neck is supple. No meningismus Lungs are clear and equal bilaterally. Heart is regular rate and rhythm. Abdomen is soft nontender nondistended. Extremities are unremarkable. Skin is warm and dry. No rash No focal neurologic deficit. Remainder of exam is unremarkable. Emergency Department Course and Treatment: Rapid strep is positive. She is given Bicillin IM. She is given Decadron p.o. She is advised to follow Dr. Webber process control manager for no doc. Advised return ED if worsening complaints. Disposition: Discharge home Impression: Strep pharyngitis This note was generated with Match dictation software. It may contain incorrect words, spelling, and punctuation that were not noted in review of the chart prior to signing ED Disposition - Plan for ED Patient: Chief Complaint: Sore Throat Referrals: Care Physician,No Primary [Primary Care Provider] - What to do if you have Problems For any increased pain, shortness of breath, bleeding, nausea or vomiting, chest pain, or any unexpected problems, contact your Primary Care Provider. Call [facility] ([phone]) or report to the closest Emergency Room. Call 911 if necessary. 02/04/182206 <Electronically signed by Calli Hernández MD> Date Calli Hernández MD Cosigner Signature (If Indicated): Date CC: No Primary Care Physician DISCHARGE INSTRUCTION Observed: 02/04/2018 Status: F Source: [place] 10:07 PM [facility] REPOSITORY [facility] Medical Records Department [address] [place] [address] Discharge Instruction 02/04/182206 MR#: [id number] Acct: [id number] Name: LASHELL REYES Rep #: [id number] : 2000 17 From: Calli Hernández MD PCP: Care Physician, No Primary Status: REG ER ED Disposition - Plan for ED Patient: Chief Complaint: Sore Throat Instructions: ED Strep Pharyngitis Conf Referrals: Care Physician,No Primary [Primary Care Provider] - Shruthi Webber MD [COURTESY STAFF PHYSICIAN] - What to do if you have Problems For any increased pain, shortness of breath, bleeding, nausea or vomiting, chest pain, or any unexpected problems, contact your Primary Care Provider. Call [facility] ([phone]) or report to the closest Emergency Room. Call 911 if necessary. 02/04/182206 <Electronically signed by Calli Hernández MD> Date Calli Hernández MD Cosigner Signature (If Indicated): Date CC: No Primary Care Physician Observed: 02/04/2018 Status: F Source: [place] STREP A (THROAT 8:50 PM [facility] RAPID REID) REPOSITORY Strep A Rapid Rapid Strep A Screen POSITIVE A Disk (Conf. Cult) Test Not Performed : All NEGATIVE screens will be confirmed with a culture. ORGANISM 1: Streptococcus Group A Performed By: #### M100.676 #### [facility] [address] [place], [address] CNCO Observed: 12/29/2017 Status: COMPLETED Source: [place] 12:00 AM [facility] REPOSITORY Letter Text General Pediatrics, [place] [id number] [facility], [address] [place] [address] December 29, 2017 RE: Lashell Reyes [address] [facility] [id number] 2000 Dear Parent/Guardian of Lashell, We have tried to contact you in regards to your child's Need for Routine Physical Our efforts to reach you have been unsuccessful. Please call [phone] to coordinate your child's plan of care. Thank you and we look forward to talking with you. Sincerely, Primary Care Pediatrics [facility] ALLERGIES ALLERGIES DATE TYPE / CODE NAME / CODE REACTION SEVERITY SOURCE 09/18/2018 Drug No Known Unknown [facility] Allergy/416 Allergies/T46849 Hospital 943319(SNOM 0388(RXNORM) Repository ED CT) Drug NO KNOWN [facility] Class/43516 ALLERGIES [facility] 1003(SNOMED Repository CT) ENCOUNTERS ENCOUNTERS ADMIT/DISCHARGE ACCOUNT NUMBER ADMITTING ENCOUNTER LOCATION SOURCE CLASS 09/18/2018/09/18/20 [id number] Emergency [address] ding:ED Repository 08/25/2018/08/27/20 [id number] Ambulatory [address] Repository 05/05/2018/05/05/20 [id number] Ambulatory [address] ding:[facility] Repository 05/04/2018/05/04/20 [id number] Ambulatory [address] ding:[facility] Repository 05/03/2018/05/03/20 [id number] Emergency BBuilding:ER [address] Repository 04/30/2018/04/30/20 [id number] Emergency [address] ding:ED Repository 02/04/2018/02/05/20 [id number] Emergency [address] ding:ED Repository PAYERS PAYERS ENCOUNTER GUARANTOR PAYER SUBSCRIBER SOURCE 09/18/2018 LASHELL KHNA Primary [place] [id number] Insurance:SELF PAY [facility] [place] Number: Effective Repository [id number]: [phone]) Date:2018-09-18 [phone] (HP) 05/05/2018 [facility] SHORTDOB: Insurance:[employer] SHORTDOB: [facility] [id number] Repository MIKE Number: [place] [id number] [place] [address]Log: [phone]) Date:2018-05-05Tel: () [id number] [phone] ()Tel: Name:SpectrumDNAO [address] [place] [address] () [address]FX: 05/04/2018 [facility] SHORTDOB: Insurance:[employer] SHORTDOB: [facility] [id number] Repository MIKE Number: [place] [id number] [facility] [place], [place] [address]Ipj: [phone]) Date:2018-05-04Tel: ()Tel: [phone] [phone] () Name:[address] () [address] [place] [address] () [id number]: 05/03/2018 [facility] SHORTDOB: Insurance:[facility] SHORTDOB: [facility] [id number] [facility] [id number] Repository MIKE Number: [place] [id number] [address]Msz: ([phone]) Date:2018-05-03 [id number]: () [id number] [phone] ()Tel: Name:BAILEY Gutiérrez [address] [place] [address] () 86[address]CI: 04/30/2018 LASHELL KHAN Primary Insurance:[facility] LASHELL Salvadorg[place] RE[address] [place], [place] [address] [place] Number: [id number] Hospital [id number]: [phone] [id number] Repository [phone] () Date:[id number] [address] [address]AS: 04/30/2018 Secondary NOT GIVENUNK [place] Insurance:SELF PAY [place] Number: Effective Repository Date:2018-04-30 02/04/2018 LASHELL KHAN Primary Insurance:[facility] LASHELL [place] [id number] [facility] [place] Number: [id number] Hospital [address]Zcw: [phone] [id number] Repository [phone] () Date:[id number] [address] [address]RV: 02/04/2018 Secondary NOT GIVENUNK [place] Insurance:SELF PAY [place] Number: Effective Repository Date:2018-02-04
== END 2018-09-18 23:47 | disposition home or self-care (01) ==
PROVIDERS: Emergency Provider Emergency Medicine
DX: N93.9 Abnormal uterine and vaginal bleeding, unspecified (principal); N39.0 Urinary tract infection, site not specified; Z72.0 Tobacco use
CPT/HCPCS: 80048; 81001; 84703; 85025; 87086; 87088; 87186; 99285; A4216

== ENCOUNTER 2018-11-04 18:14 | Emergency (ER) | payer SELFPAY ==
[2018-11-04 18:15] VITALS: BP 125/78; PULSE 79; RESP 18; TEMP 37.1; O2SAT 95; BMI 25.7
--- NOTE | 2018-11-04 19:00 | ED.DCSUM_ITS ---
- ER Visit Summary Date of Service: 11/04/18 Chief Complaint: symptoms History of Present Illness: The patient is a 18 F who has had breast enlargement, breast pain as well as nausea and sensitivity to smell over the past 4 weeks she did a home test and it was negative she wants to make sure. He has no abdominal pain vaginal bleeding flank pain or any other symptoms. Her last menstrual cycle was 4 weeks ago. Physical Examination: Not appear in acute distress. Moist mucous membranes, no obvious facial deformity No C-spine tenderness supple neck. Regular rate and rhythm without any obvious murmurs Clear lungs bilaterally speaking in full sentences without any obvious respiratory distress Abdomen soft and nontender no guarding or rebound Moves all extremities without any difficulty or pain. Skin does not show any obvious rashes or lesions, no trauma. Alert oriented ?3 with no gross focal deficit Emergency Department Course and Treatment: Her hCG is negative we will discharge in stable condition to follow-up with HORTICULTURAL TECHNICAL OFFICER. Disposition: Discharge stable condition Impression: [Requesting test Negative test] This note was generated with [employer] dictation software. It may contain incorrect words, spelling, and punctuation that were not noted in review of the chart prior to signing ED Disposition - Plan for ED Patient: Disposition: Home or Assisted Living Referrals: Neil Abrams MD [STAFF PHYSICIAN] - 3-5 Days Additional Instructions: You are not , follow-up with your HORTICULTURAL TECHNICAL OFFICER doctor for further testing
[2018-11-04 19:07] LABS: Internal QC Validated? YES +Cl - CLEAR BKGD; Pregnancy, Urine Negative Negative
[2018-11-04 19:19] VITALS: RESP 18
== END 2018-11-04 19:24 | disposition home or self-care (01) ==
PROVIDERS: Emergency Provider Emergency Medicine
DX: Z32.02 Encounter for pregnancy test, result negative (principal); N64.4 Mastodynia; R11.0 Nausea; Z72.0 Tobacco use
CPT/HCPCS: 81025; 99282

== ENCOUNTER 2019-04-15 19:19 | Emergency (ER) | payer SELFPAY ==
[2019-04-15 19:20] VITALS: BP 117/68; PULSE 103; RESP 18; TEMP 36.8; O2SAT 99; BMI 25.6
[2019-04-15] MEDS: Lidocaine/Epi/Tetracaine 50 ML 1 APPLIC TOPICAL (20:37)
[2019-04-15] MEDS: HYDROcodone Bitartrate/Apap 5/325 Tablet PO (20:37)
[2019-04-15] MEDS: Smz/Tmp Ds Tablet 1 TABLET PO (20:37)
--- NOTE | 2019-04-15 21:24 | ED.DCSUM_ITS ---
- ER Visit Summary Date of Service: 04/15/19 Chief Complaint: Abscess History of Present Illness: The patient is a 18 F who states for the past 2 to 3 days she has had of a developing worsening abscess in the inguinal region on the anterior left thigh. She never had anything like this before. No fevers. Is painful. Physical Examination: Afebrile vital signs stable There is a cutaneous abscess with fluctuance in the left inguinal region closest to the mons pubis. There is surrounding erythema. It does not extend down onto the labia. Emergency Department Course and Treatment: Let was applied and then local lidocaine instilled into the area. A cross incision was made with expression of a large amount of pus. Wound was probed for loculations irrigated with saline and packed with several inches of quarter inch iodoform gauze. Because of the surrounding erythema I will place her on Bactrim. I will also write for [place]. Impression: 1. Left inguinal abscess 2. Incision and drainage by physician This note was generated with Broota dictation software. It may contain incorrect words, spelling, and punctuation that were not noted in review of the chart prior to signing ED Disposition - Plan for ED Patient: Disposition: Home or Assisted Living Instructions: ABSCESS, Incision and Drainage Prescriptions: Smz/Tmp Ds [Bactrim Ds] 1 tab PO BID #14 tab Prescription Printed Hydrocodone Bitart/Apap 5-325 [[place] 5MG-325MG] 1 tab PO Q6H PRN PRN 3 Days #10 tab PRN Reason: Pain Prescription Printed Referrals: Teofilo Erickson III, MD [STAFF PHYSICIAN] - (in 3 days for wound check) Additional Instructions: You may remove the packing in 48 to 72 hours by yourself or return here for repeat examination to have it removed.
--- NOTE | 2019-04-15 21:30 | ED.RN ---
DR. CRYSTAL PERFORMED I/D WITH SUPERVISION OF DEMETRIUS LAGUNA.
[2019-04-15 21:39] VITALS: BP 116/70; PULSE 72; RESP 16; O2SAT 99
== END 2019-04-15 21:40 | disposition home or self-care (01) ==
PROVIDERS: Emergency Provider Emergency Medicine
DX: L02.214 Cutaneous abscess of groin (principal)
CPT/HCPCS: 10060; 99283

== ENCOUNTER 2019-04-18 23:29 | Emergency (ER) | payer SELFPAY ==
[2019-04-18 23:30] VITALS: BP 119/73; PULSE 84; RESP 18; TEMP 36.6; O2SAT 97; BMI 25.7
--- NOTE | 2019-04-18 23:48 | ED.VISSUMM ---
- ER Visit Summary Date of Service: 04/18/19 Chief Complaint: Packing removal History of Present Illness: The patient is a 18 F who presents for packing removal. Patient had incision and drainage of an abscess 3 days ago. Patient states she has been having some drainage from the area. She admits to some mild nausea. Patient denies any fevers or chills. Patient denies any increase in swelling of the abscess area. Patient denies any increase in redness to the area. Patient states the abscess appears to be healing well. Physical Examination: Vital signs are stable. Patient is afebrile. Patient is in no acute distress. Skin is warm and dry. There is some erythema in the left inguinal area. Packing is in place. There is some mild purulent drainage. There is no inguinal lymphadenopathy noted. Cranial nerves II through XII are intact. There are no focal motor or sensory deficits noted. Emergency Department Course and Treatment: The packing was removed without difficulty. Patient tolerated procedure well. Gauze dressing was applied. Patient was instructed to continue her antibiotics until gone. Patient was instructed to follow-up with her primary care physician in 5 to 7 days. Patient understood and was agreeable with the plan. All questions were answered. Disposition: Discharge home Impression: Packing removal This note was generated with Gentronix dictation software. It may contain incorrect words, spelling, and punctuation that were not noted in review of the chart prior to signing ED Disposition - Plan for ED Patient: Disposition: Home or Assisted Living Diagnosis: Abscess packing removal Instructions: Abscess, Packing Removal Referrals: Care Physician,No Primary [Primary Care Provider] - Ishaan Rhoades MD [NON-STAFF] - 5-7 Days
[2019-04-19 00:35] VITALS: PULSE 85; RESP 16; O2SAT 100
== END 2019-04-19 00:36 | disposition home or self-care (01) ==
LOC: ED 23:55
PROVIDERS: Emergency Provider Emergency Medicine
DX: L02.214 Cutaneous abscess of groin (principal); Z48.01 Encounter for change or removal of surgical wound dressing; R11.0 Nausea; Z72.0 Tobacco use
CPT/HCPCS: 99283

== ENCOUNTER → 2020-07-02 | Outpatient (CLI) | payer MEDICAID, SELFPAY ==
[2020-07-02 14:25] VITALS: BMI 25.7
[2020-07-02 17:54] LABS: Amphetamine Urine VISTA NEGATIVE (<1000 ng/mL); Barbiturate Urine VISTA NEGATIVE (< 200 ng/mL); Benzodiazepine Urine VISTA NEGATIVE (< 200 ng/mL); Cocaine Urine VISTA NEGATIVE (< 300 ng/mL); Ecstacy Urine VISTA NEGATIVE (< 500 ng/mL); Methadone Urine VISTA NEGATIVE (< 300 ng/mL); PCP Urine VISTA NEGATIVE (< 25 ng/mL); THC Urine VISTA POSITIVE (< 50 ng/mL); Vista UDS pH Range 6
[2020-07-06 05:06] LABS: Chlamydia By Nucleic Acid AMP Negative (Negative)
[2020-07-06 14:37] LABS: Gonococcus By Nucleic Acid AMP Negative (Negative)
[2020-07-07 17:17] LABS: HPV Reflexed? NOT INDICATED
== END | disposition home or self-care (01) ==
LOC: LABSPEC 16:40
PROVIDERS: Referring Provider Obstetrics & Gynecology; Visit Provider Obstetrics & Gynecology
DX: Z34.00 Encounter for supervision of normal first pregnancy, unspecified trimester (principal)
CPT/HCPCS: 80307; 87077; 87086; 87088; 87186; 87491; 87591; 88175; G0145

== ENCOUNTER → 2020-07-31 15:25 | Outpatient (CLI) | payer MEDICAID, SELFPAY ==
[2020-07-31 14:47] VITALS: BMI 27.1
[2020-07-31 16:14] LABS: Absolute Lymphocyte Count 2.22 X10^3/uL (0.83-4.51); Absolute Neutrophil Count 7.8 X10^3/uL (2.0-7.7); Basophil# 0.03 X10^3/uL; Basophil% 0.3 % (0-1); Eosinophil# 0.09 X10^3/uL; Eosinophils% 0.8 % (0-5); Lymphocyte # 2.22 X10^3/ul (4.0); Lymphocyte % 20.2 % (19-41); Mean Corp Hgb Conc 34.2 g/dL (32-36); Mean Corpuscular Hgb 30.4 pg (27.0-32.0); Mean Corpuscular Volume 88.8 fL (81-99); Mean Platelet Vol. 10.3 fl (6.2-12.0); Monocyte# 0.85 X10^3/uL; Monocyte% 7.7 % (0-10); NRBC Flagged by Analyzer 0 % (0-5); Neutrophil # 7.76 X10^3/uL (2.7-7.7); Neutrophil % 70.6 % (47-70); Platelet Count 244 K/mm3 (150-450); RBC Distribution Width CV 12.4 % (11.6-14.6); RBC Distribution Width SD 40.3 fl (35.1-43.9); Red Blood Count 4.28 M/mm3 (4.2-5.4)
[2020-07-31 17:02] LABS: NATERA MAILED SPECIMEN
[2020-08-03 09:12] LABS: HIV - WCH Non-Reactive (Nonreactive); Hepatitis B Surface Antigen Non-Reactive (Nonreactive); Hepatitis C Antibody Non-Reactive (Nonreactive)
[2020-08-06 02:11] LABS: Rapid Plasmin Reagin (RPR) NONREACTIVE (NONREACTIVE)
== END ==
PROVIDERS: Referring Provider Obstetrics & Gynecology; Visit Provider Obstetrics & Gynecology
DX: Z34.81 Encounter for supervision of other normal pregnancy, first trimester (principal); Z31.430 Encounter of female for testing for genetic disease carrier status for procreative management
CPT/HCPCS: 36415; 85025; 86592; 86703; 86803; 86850; 86900; 86901; 87340; 88175; G0145

== ENCOUNTER → 2020-08-28 12:18 | Outpatient (CLI) | payer MEDICAID, SELFPAY ==
[2020-08-28 12:07] VITALS: BMI 26.9
== END ==
PROVIDERS: Referring Provider Obstetrics & Gynecology; Visit Provider Obstetrics & Gynecology
DX: Z36.89 Encounter for other specified antenatal screening (principal)
CPT/HCPCS: 36415

== ENCOUNTER → 2020-11-13 16:08 | Outpatient (CLI) | payer MEDICAID, SELFPAY ==
[2020-11-13 15:37] VITALS: BMI 30.7
[2020-11-13 17:10] LABS: Absolute Lymphocyte Count 2.16 X10^3/uL (0.83-4.51); Absolute Neutrophil Count 11.1 X10^3/uL (2.0-7.7); Basophil# 0.06 X10^3/uL; Basophil% 0.4 % (0-1); Eosinophil# 0.13 X10^3/uL; Eosinophils% 0.9 % (0-5); Hematocrit 33.6 % (37-47); Hemoglobin 11.2 g/dL (12.0-15.0); Lymphocyte # 2.16 X10^3/ul (4.0); Lymphocyte % 14.5 % (19-41); Mean Corp Hgb Conc 33.3 g/dL (32-36); Mean Corpuscular Hgb 31.5 pg (27.0-32.0); Mean Corpuscular Volume 94.4 fL (81-99); Mean Platelet Vol. 10.1 fl (6.2-12.0); Monocyte# 1.19 X10^3/uL; NRBC Flagged by Analyzer 0 % (0-5); Neutrophil % 74.7 % (47-70); Platelet Count 258 K/mm3 (150-450); RBC Distribution Width CV 13.3 % (11.6-14.6); RBC Distribution Width SD 45.7 fl (35.1-43.9); Red Blood Count 3.56 M/mm3 (4.2-5.4); White Blood Count 14.9 K/mm3 (4.4-11.0)
[2020-11-13 18:11] LABS: Glucose Challenge Gest 1H 50g 88 mg/dL (70-140)
[2020-11-13 19:07] LABS: Rubella IgG Reactive (Nonreactive)
== END ==
PROVIDERS: Referring Provider Obstetrics & Gynecology; Visit Provider Obstetrics & Gynecology
DX: Z34.90 Encounter for supervision of normal pregnancy, unspecified, unspecified trimester (principal); Z13.1 Encounter for screening for diabetes mellitus
CPT/HCPCS: 36415; 82950; 85025; 86762

== ENCOUNTER → 2020-11-27 | Outpatient (CLI) | payer MEDICAID, SELFPAY ==
[2020-11-27 15:47] VITALS: BMI 31.0
== END | disposition home or self-care (01) ==
LOC: LABSPEC 16:32
PROVIDERS: Referring Provider Obstetrics & Gynecology; Visit Provider Obstetrics & Gynecology
DX: O26.899 Other specified pregnancy related conditions, unspecified trimester (principal); N89.8 Other specified noninflammatory disorders of vagina; Z3A.00 Weeks of gestation of pregnancy not specified
CPT/HCPCS: 87070; 87077; 87186; 87205

== ENCOUNTER → 2021-01-08 | Outpatient (CLI) | payer MEDICAID, SELFPAY ==
[2021-01-08 15:31] VITALS: BMI 34.4
[2021-01-08 19:07] LABS: Amphetamine Urine VISTA NEGATIVE (<1000 ng/mL); Barbiturate Urine VISTA NEGATIVE (< 200 ng/mL); Benzodiazepine Urine VISTA NEGATIVE (< 200 ng/mL); Cocaine Urine VISTA NEGATIVE (< 300 ng/mL); Ecstacy Urine VISTA NEGATIVE (< 500 ng/mL); Methadone Urine VISTA NEGATIVE (< 300 ng/mL); PCP Urine VISTA NEGATIVE (< 25 ng/mL); THC Urine VISTA NEGATIVE (< 50 ng/mL); Vista UDS pH Range 5
== END | disposition home or self-care (01) ==
PROVIDERS: Referring Provider Obstetrics & Gynecology; Visit Provider Obstetrics & Gynecology
DX: F12.10 Cannabis abuse, uncomplicated (principal)
CPT/HCPCS: 80307

== ENCOUNTER 2021-01-12 15:30 | Outpatient (CLI) | payer MEDICAID, SELFPAY ==
[2021-01-08 15:31] VITALS: BMI 34.4
[2021-01-12 15:40] VITALS: BMI 34.7
[2021-01-12 15:51] VITALS: BP 127/75; PULSE 77
[2021-01-12 15:52] VITALS: PULSE 82; O2SAT 96
[2021-01-12 15:53] VITALS: TEMP 37; O2SAT 96
--- NOTE | 2021-01-14 08:01 | OB.TRI.PN ---
Progress Notes Date of Service: 01/12/21 Progress Note: Patient presents for triage evaluation secondary to contractions possible labor no cervical change intermittent contractions false labor FHT: 130 Moderate variability reactive no decelerations category I tracing [place]: Every 5 minutes or more contractions Assessment and plan: False labor reactive NST, reassuring maternal and status patient discharged to home to follow-up scheduled. See problem list details for additional plan information. Multi Select Codes - Urinary/Genital Urinary/Genital CPT Codes: 91197-38 non-stress test Interp
== END 2021-01-12 16:30 | disposition home or self-care (01) ==
LOC: WPOUT 15:38 → WP 15:40
PROVIDERS: Visit Provider Obstetrics & Gynecology
DX: O47.9 False labor, unspecified (principal); Z3A.00 Weeks of gestation of pregnancy not specified
CPT/HCPCS: 59025; 59050; 99218; G0378

== ENCOUNTER → 2021-01-25 14:51 | Outpatient (CLI) | payer MEDICAID, SELFPAY ==
[2020-12-25 15:43] VITALS: BMI 33.2
[2021-01-25 13:19] VITALS: BMI 31.9
== END ==
PROVIDERS: Visit Provider Obstetrics & Gynecology
DX: Z34.93 Encounter for supervision of normal pregnancy, unspecified, third trimester (principal); Z3A.36 36 weeks gestation of pregnancy
CPT/HCPCS: 87635; C9803; U0002

== ENCOUNTER 2021-02-03 13:33 | Inpatient (IN) | payer MEDICAID, SELFPAY ==
[2021-02-03] VITALS (33 sets, daily range): BP systolic 99–136; BP diastolic 54–89; PULSE 67–157; TEMP 36.6–36.9; O2SAT 78–100; BMI 31.9; BMI 37.2
[2021-02-03] MEDS: Lactated Ringers 1,000 ML 50 ML IV (15:31)
[2021-02-03 16:07] LABS: Absolute Lymphocyte Count 2.09 X10^3/uL (0.83-4.51); Absolute Neutrophil Count 8.9 X10^3/uL (2.0-7.7); Basophil# 0.04 X10^3/uL; Basophil% 0.3 % (0-1); Eosinophil# 0.09 X10^3/uL; Eosinophils% 0.8 % (0-5); Hematocrit 38.6 % (37-47); Hemoglobin 12.8 g/dL (12.0-15.0); Lymphocyte # 2.09 X10^3/ul (0.83-4.51); Lymphocyte % 17.6 % (19-41); Mean Corp Hgb Conc 33.2 g/dL (32-36); Mean Corpuscular Hgb 31.1 pg (27.0-32.0); Mean Corpuscular Volume 93.9 fL (81-99); Mean Platelet Vol. 10.7 fl (6.2-12.0); Monocyte# 0.65 X10^3/uL; Monocyte% 5.5 % (0-10); NRBC Flagged by Analyzer 0 % (0-5); Neutrophil # 8.89 X10^3/uL (2.7-7.7); Platelet Count 243 K/mm3 (150-450); RBC Distribution Width CV 14.1 % (11.6-14.6); RBC Distribution Width SD 47.8 fl (35.1-43.9); Red Blood Count 4.11 M/mm3 (4.2-5.4); White Blood Count 11.9 K/mm3 (4.4-11.0)
[2021-02-03] MEDS: 0.9% Normal Saline Single 100 ML IV.SOLN. INTRA-UTER (16:15)
--- NOTE | 2021-02-03 16:50 | HP.PCM.OB_ITS ---
HPI - General General Date of Admission: 02/03/21 HPI Narrative LASHELL ANGUIANO, is a 20 F at 40/3 who presents with contractions. While in triage, patient was found to have 2 late decelerations with periods of minimal variability. heart rate tracing overall reassuring, but decision made to admit patient for induction of labor for category 2 heart rate tracing [facility] Medical History (Updated 02/03/21 @ 16:[address] Magda Malin MD) No significant medical problems Home Medications multivitamin no.47-iron fum 27 mg-folate no.1 1 mg-dha 300 mg capsule 1 cap PO DAILY 07/02/20 [History Last Taken 02/02/21 22:00] evening primrose oil [[place]] mg 02/03/21 [History Last Taken 02/03/21 06:30] Allergy/AdvReac Type Severity Reaction Status Date / Time latex AdvReac Rash Verified 02/03/21 11:31 Surgical History No significant past surgical history Social History household members: family housing: house current occupational status: employed current occupation: [employer] pets and animals: Yes Smoking Status: Current every day smoker second hand exposure: Yes alcohol intake: current substance use type: does not use seatbelt use: always do you feel safe at home: Yes History 2 Elective abortions Hx Para 0 Spontaneous abortions Hx # Term Pregnancies Ectopic pregnancies Hx # Pregnancies Multiple births # of living children Visit Details Expected Delivery Route/Plan by 41 Labor Preferences- CB/BF classes: declines labor support person: Thomas labor intervention preferences: Open to standard interventions pain management options preferred: natural - does not want anything in her back cut cord/dad catch: cord : yes PP control planned: Mirena at PP visit discussed possible routes of delivery and associated risks: discussed possible delivery modalities and possible indications for each including R/B/A of , VAVD, FAVD, and CS. questions answered. special requests: declines spinal in labor - discussed associated risks for general anesthesia Plans flu vaccine: decline tdap vaccine: given rhogam: na LARC form signed: declined movement and labor precautions reviewed. Problem list reviewed and updated with the most current plan of care details and appropriate orders placed. Relevant counseling for the gestational age provided. Continue routine care and follow up unless otherwise noted in visit notes/problem list details OB Flowsheet Initial Weight: Not Recorded Date -?-?-?-?-?-?-?-?-?-?-?-?- EGA Weight BP Urine Prot -?-?-?-?-?-?-?-?-?-?-?-?- Glucose FHR FuHt Pres Dilation -?-?-?-?-?-?-?-?-?-?-?-?- Effaced St Visit Note 07/02/20 -?-?-?-?-?-?-?-?-?-?-?-?- 9w 4d 159 lb -?-?-?-?-?-?-?-?-?-?-?-?- 171 -?-?-?-?-?-?-?-?-?-?-?-?- GP - CRL 20mm co nsistent with LMP. 07/31/20 -?-?-?-?-?-?-?-?-?-?-?-?- 13w 5d 158 lb 2 oz 120/80 Nega tive -?-?-?-?-?-?-?-?-?-?-?-?- Negative 150 -?-?-?-?-?-?-?-?-?-?-?-?- GP - no cramping or bleeding. Has not yet had NOB labs as wanted to wait until has genetic testing. Plans to have done today. GP - no cramping or bleeding . Has not yet had NOB labs as wanted to wait until has genetic testing. Plans to have done today. N/V improved. 08/28/20 -?-?-?-?-?-?-?-?-?-?-?-?- 17w 5d 157 lb 100/80 Negative -?-?-?-?-?-?-?-?-?-?-?-?- Negative 145 -?-?-?-?-?-?-?-?-?-?-?-?- SM- no vb lof cr amping 09/23/20 -?-?-?-?-?-?-?-?-?-?-?-?- 21w 3d 165 lb 8 oz 118/78 Nega tive -?-?-?-?-?-?-?-?-?-?-?-?- Negative 150 -?-?-?-?-?-?-?-?-?-?-?-?- GP - no LOF, VB, DFM. Having round ligament pain - discussed supportive measures. Anatomy scan normal. 09/30/20 -?-?-?-?-?-?-?-?-?-?-?-?- 22w 3d 166 lb 8 oz 120/60 Nega tive -?-?-?-?-?-?-?-?-?-?-?-?- Negative 156 -?-?-?-?-?-?-?-?-?-?-?-?- -work in for v aginal itching and discharge. Denies STD concerns. Good FM. No VB. Exam confirms yeast-OTC monistat 10/23/20 -?-?-?-?-?-?-?-?-?-?-?-?- 25w 5d 173 lb 104/82 Negative -?-?-?-?-?-?-?-?-?-?-?-?- Negative 130 25 -?-?-?-?-?-?-?-?-?-?-?-?- SM- no vb lof go od fm no regular ctx 11/13/20 -?-?-?-?-?-?-?-?-?-?-?-?- 28w 5d 179 lb 126/70 Negative -?-?-?-?-?-?-?-?-?-?-?-?- Negative 145 29 -?-?-?-?-?-?-?-?-?-?-?-?- SM- no vb lof go od fm nor egular ctx cbc gct rubella today 11/27/20 -?-?-?-?-?-?-?-?-?-?-?-?- 30w 5d 181 lb 124/70 -?-?-?-?--?-?-?-?-?-?-?-?- 145 30 -?-?-?-?-?-?-?-?-?-?-?-?- GP - no LOF, VB, DFM, ctx. Reporting yeast symptoms - exam consistent with yeast. Script sent to pharmacy. LARC form signed. 12/11/20 -?-?-?-?-?-?-?-?-?-?-?-?- 32w 5d 188 lb 132/72 Negative -?-?-?-?-?-?-?-?-?-?-?-?- Negative 140 32 -?-?-?-?-?-?-?-?-?-?-?--?- SM- no vb lof go od fm no regular ctx 12/25/20 -?-?-?-?-?-?-?-?-?-?-?-?- 34w 5d 193 lb 8 oz 136/88 -?-?-?-?-?-?-?-?-?-?-?-?- 140 33 -?-?-?-?-?-?-?-?-?-?-?-?- GP - no LOF, VB, DFM, ctx. Discussed labor preferences and routes of delivery. 01/08/21 -?-?-?-?-?-?-?-?-?-?-?-?- 36w 5d 201 lb 108/80 Negative -?-?-?-?-?-?-?-?-?-?-?-?- Negative 140 36 -?-?-?-?-?-?-?-?-?-?-?-?- SM- no vb lof go od fm no regular ctx gbs 01/15/21 -?-?-?-?-?-?-?-?-?-?-?-?- 37w 5d 207 lb 6 oz 128/60 Nega tive -?-?-?-?-?-?-?-?-?-?-?-?- Negative 140 37 0.5 -?-?-?-?-?-?-?-?-?-?-?-?- SM- no vb lof go od fm no reuglar ctx- seen in triage for false labor 01/22/21 -?-?-?-?-?-?-?-?-?-?-?-?- 38w 5d 208 lb 136/80 Negative -?-?-?-?-?-?-?-?-?-?-?-?- Negative 140 38 Cephalic 0 .5 -?-?-?-?-?-?-?-?-?-?-?-?- 50 -3 GP - no LO F, VB, DFM, regular ctx. Denies complaints. 01/25/21 -?-?-?-?-?-?-?-?-?-?-?-?- 39w 1d 210 lb 2 oz 130/80 Nega tive -?-?-?-?-?-?-?-?-?-?-?-?- Negative 155 39 Cephalic 0 .5 -?-?-?-?-?-?-?-?-?-?-?-?- 50 -3 GP - no LO F, VB, DFM, ctx. Discussed IOL at 41w if no labor. 02/03/21 -?-?-?-?-?-?-?-?-?-?-?-?- 40w 3d 216 lb 4 oz 128/78 Nega tive -?-?-?-?-?-?-?-?-?-?-?-?- Negative 130 40 Cephalic 1 -?-?-?-?-?-?-?-?-?-?-?-?- 50 -3 GP- no LOF , VB. Regular ctx overnight/this am. Also not feeling baby move as much. Sent to triage for prolonged monitoring and r/o labor. 02/03/21 -?-?-?-?-?-?-?-?-?-?-?-?- 40w 3d 216 lb 11.43 oz 114/66 -?-?-?-?-?-?-?-?-?-?-?-?- 156 1 -?-?-?-?-?-?-?-?-?-?-?-?- 50 -3 GP - Admit lizeth for induction of labor for Cat II FHT ROS Eyes Eyes: Reports systems reviewed and no addt'l complaints, except as documented ENT HEENT: Reports systems reviewed and no addt'l complaints, except as documented Cardiovascular Cardiovascular: Reports systems reviewed and no addt'l complaints, except as documented Respiratory/Chest Respiratory/Chest: Reports systems reviewed and no addt'l complaints, except as documented Gastrointestinal Gastrointestinal: Reports systems reviewed and no addt'l complaints, except as documented Genitourinary Genitourinary: Reports systems reviewed and no addt'l complaints, except as documented Musculoskeletal Musculoskeletal: Reports systems reviewed and no addt'l complaints, except as documented Integumentary Integumentary: Reports systems reviewed and no addt'l complaints, except as documented Neurologic Neurologic: Reports systems reviewed and no addt'l complaints, except as documented Psychiatric Psychiatric: Reports systems reviewed and no addt'l complaints, except as documented Endocrine Endocrinology: Reports systems reviewed and no addt'l complaints, except as documented Hematologic/Lymphatic Hematologic/Lymphatic: Reports systems reviewed and no addt'l complaints, except as documented Allergic/Immunologic Allergic/Immunologic: Reports systems reviewed and no addt'l complaints, except as documented Vital Signs Vital Signs Vital Signs: 02/03/21 12:04 02/03/21 12:05 Temperature 98.1 F Temperature Source Temporal Pulse Rate 78 76 Blood Pressure 114/66 BP Systolic 114 BP Diastolic 66 Pulse Ox 99 Physical Exam Const alert, oriented x3, no apparent distress, average body habitus, healthy appearing and well nourished HEENT normocephalic and moist oral mucous membranes Head and Scalp: atraumatic Eyes PERRL and EOMs intact bilaterally Neck full ROM Resp normal respiratory effort, no retractions and no use of accessory muscles Cardio regular rate and regular rhythm GI soft to palpation, non-tender and non-distended Extremity normal to inspection and full ROM Skin no rashes or lesions noted Neuro no focal motor deficits and no sensory deficits noted Psych mental status grossly normal, affect normal, speech normal and activity/motor behavior normal Assessment & Plan (1) Encounter for induction of labor: PLAN: 20yo at 40/3 admitted for induction of labor for Cat II FHT due to 2 late decelerations in triage Patient presents IOL, plan management for with wise bulb/pitocin Pain management: . desires natural GBS positive - PCN Management of any complications: none I have reviewed the [facility] and made any clinically relevant updates. (2) GBS (group B streptococcus) UTI complicating : QUALIFIERS: Trimester: third trimester Qualified Code(s): O23.43 - Unspecified infection of urinary tract in , third trimester COMMENT: Will need antibiotics while in labor. Does not need GBS culture later in due to positive result. (3) Marijuana abuse: COMMENT: + tox 07/02/20 (4) Smoking (tobacco) complicating , unspecified trimester: COMMENT: Discussed benefits of cessation. Working on cutting back. (5) Supervision of normal first : QUALIFIERS: Trimester: third trimester Qualified Code(s): Z34.03 - Encounter for supervision of normal first , third trimester COMMENT: PRR WILLIAM: 01/31/2021 martinez Gastelum BF: Thomas (6) : QUALIFIERS: Weeks of gestation: 40 weeks Qualified Code(s): Z3A.40 - 40 weeks gestation of COMMENT: carrier- neg , afp negative, genetic low risk; NL anatomy
[2021-02-03] MEDS: Oxytocin 30 units/NS 500 ml 30 UNITS/500 ML IV.SOLN IV (19:32)
[2021-02-03 19:47] LABS: Amphetamine Urine VISTA NEGATIVE (<1000 ng/mL); Barbiturate Urine VISTA NEGATIVE (< 200 ng/mL); Benzodiazepine Urine VISTA NEGATIVE (< 200 ng/mL); Cocaine Urine VISTA NEGATIVE (< 300 ng/mL); Ecstacy Urine VISTA NEGATIVE (< 500 ng/mL); Methadone Urine VISTA NEGATIVE (< 300 ng/mL); PCP Urine VISTA NEGATIVE (< 25 ng/mL); THC Urine VISTA NEGATIVE (< 50 ng/mL); Vista UDS pH Range 6
[2021-02-03] MEDS: Lactated Ringers 500 ML 999 ML IV (21:26)
[2021-02-03] MEDS: fentaNYL-bupivacaine (epidural) 100 ML BAG EPIDURAL (22:46)
[2021-02-04] VITALS (36 sets, daily range): BP systolic 105–130; BP diastolic 51–73; PULSE 69–95; TEMP 36.7–37.7; O2SAT 85–100
[2021-02-04] MEDS: Lactated Ringers 1,000 ML 200 ML IV ×4 (01:22→18:55)
[2021-02-04] MEDS: fentaNYL-bupivacaine (epidural) 100 ML BAG EPIDURAL ×4 (03:24→19:53)
[2021-02-04] MEDS: Lactated Ringers 500 ML 999 ML IV ×3 (09:50→23:35)
[2021-02-04] MEDS: Amnioinfusion- 0.9% NS 1,000 ML IV.SOLN. INTRA-UTER ×2 (10:10→20:28)
[2021-02-04] MEDS: Ondansetron 4 MG/2 ML Vial IV (11:51)
[2021-02-04] MEDS: Terbutaline 1 MG/ML Vial 0.25 MG SC (21:08)
--- NOTE | 2021-02-04 21:10 | PCM.PN.BLA ---
Progress Note Came to patient bedside due to prolonged decel at 2037 for 6 minutes into the 70s. When I arrived, pitocin was turned off, oxygen was in place, fluid bolus and AI were running, patient was in hands and knees and terbutaline had been administered. Baby returned to baseline. Cervix 9/90/0 and scalp stim obtained with exam. Patient repositioned to high fowlers. Will leave pitocin off for 30 minutes of category 1 then start from 2mu/min. As long as pattern tolerates, will continue to titrate pitocin and recheck in 4 hours or if pattern Cat 2. Patient aware if baby has further similar decels without cervical change, would proceed with .
[2021-02-05] VITALS (20 sets, daily range): BP systolic 99–129; BP diastolic 50–73; PULSE 70–97; RESP 16–18; TEMP 36.1–37.4; O2SAT 96–100
--- NOTE | 2021-02-05 00:01 | PCM.PN.BLA ---
Progress Note Notified by RN of additional prolonged decelerations the deepest of which was into the 70s for 2 minutes. Patient again repositioned the hands and knees, fluid bolus given, Pitocin turned off, oxygen placed. Amnioinfusion already running. After interventions, heart rate tracing shows contractions spaced approximately every 7 minutes and still having intermittently decelerations with periods of minimal variability. Cervix anterior lip, 90% effaced, 0 station. Discussed with patient that given intolerance of labor and inability to augment, I am concerned that even if we are able to restart her to complete dilation her baby is not going to be able to tolerate proportional progress and given that this is her first , she will likely have a prolonged period of time to push before you would be at the point of delivery. Recommend proceeding with primary at this time for category 2 heart rate tracing remote from delivery and inability to augment. The risks, benefits, indications, and alternatives to the procedure were discussed with the patient including bleeding, infection, and visceral or vascular injury. Patient voiced understanding and agreed to proceed. Plan to proceed with primary as soon as possible.
[2021-02-05] MEDS: Sodium Citrate/Citric Acid 30 ML UDC PO (00:05)
[2021-02-05] MEDS: Lactated Ringers 1,000 ML 200 ML IV (00:05)
[2021-02-05] MEDS: Cefazolin 2 GM in 0.9% Normal Saline 100 ML IV (00:09)
--- NOTE | 2021-02-05 01:18 | EX.PCM.OBRPT ---
Problems Associated Problem List Diagnoses (1) S/P section: (2) Encounter for induction of labor: (3) 36 weeks gestation of : (4) GBS (group B streptococcus) UTI complicating : (5) Marijuana abuse: (6) Smoking (tobacco) complicating , unspecified trimester: (7) Supervision of normal first : (8) : Report of Operation (OB) Information WILLIAM Calculator Estimated Delivery Date Method Current WG Current Estimate 01/31/21 LMP (Certain) 40w 5d Other Estimates 02/05/21 Ultrasound #1 40w 0d Final WILLIAM: 01/31/21 Gestational age: 40 Weeks and 5 Days Operative Information Date of Procedure: 02/05/21 Pre-Operative Diagnosis: Term , persistent category 2 heart rate tracing, inability to augment Post-Operative Diagnosis: Same supervisor lime: Sunil Mayers Type of Anesthesia: Epidural Indication Classification: ERNESTO Procedure Type: low transverse Indications: 20-year-old G1, P0 at 40 weeks gestation admitted for induction of labor for category 2 heart rate tracing. Patient was induced with Jolley bulb and Pitocin. Throughout labor, patient had periods of recurrent late and variable decelerations resolved with interventions. She had made cervical change to 9 cm at 9 PM after having a prolonged deceleration and having Pitocin turned off. She again had 2 prolonged decelerations at 1130 followed by recurrent late decelerations which required Pitocin to be discontinued. Given that patient had not made cervical change, the recommendation was made to proceed with a primary for category 2 heart rate tracing remote from delivery and inability to augment. Indications for : Nonreassuring Status Findings Description of Procedure: The patient is a G1, P0 at 40 weeks gestation presented for primary . Spinal anesthesia was placed without difficulty. Jolley catheter was placed. The patient was placed in the dorsal supine position with leftward tilt. Patient was prepped and draped in the normal sterile fashion. Pfannenstiel skin incision was made with the scalpel and carried through to the underlying layer of fascia with the scalpel. Fascia was nicked in the midline and the incision extended laterally. The rectus bellies were dissected off superiorly and inferiorly with out complication both sharply and bluntly. The peritoneum was entered digitally. The incision was stretched and a low transverse uterine incision was made with the scalpel. The 's head was delivered atraumatically followed by the anterior and posterior shoulders without complication the rest of the infant delivered. The cord was clamped and cut and the was handed off to awaiting nurse. The placenta was delivered spontaneously immediately following and was noted to be intact and have a three-vessel cord. The uterus was exteriorized cleared of all clots and debris, and the incision was closed in a double layer closure using #1 Monocryl. The ovaries and fallopian tubes were noted to be within normal limits. The uterus was returned to the maternal abdomen and gutters were cleared of all clots and debris. The peritoneum was closed with 3-0 Monocryl in a running fashion. Gloves were changed prior to fascial closure. Fascia was closed with 0 PDS in a running fashion. Subcutaneous tissue was copiously irrigated and the skin was closed with 3-0 Monocryl in a subcuticular fashion. Mepilex dressing was applied without complication. Patient was taken to recovery in stable condition. Presentation: Positive for Vertex Amniotic Membrane Rupture Type: Artificial Amniotic Fluid Description: Clear Placental Delivery Description: Spontaneous Placenta Disposition: [facility] Specimen(s) Sent to Pathology: Placenta Cord Vessel Description: 3 Vessels Cord Entanglement: None Gender: Male Delayed Cord Clamping: Yes Drain: Jolley to straight drain Esitmated Blood Loss (mL): 700 Medications Given Antibiotic Given: Ancef 2 grams IV x1 and Zithromax 500 mg/5 mL X1 Medications Given After Delivery: IV Pitocin Complications Risks of Surgery Discussed w/Patient: Bleeding, Anesthesia Risks, Infection and Injury to surrounding structure(s) including bowel and bladder Complications: None Procedures Urinary/Genital [id number]: [id number] delivery+ Care([facility])
[2021-02-05] MEDS: Oxytocin 30 units/NS 500 ml 30 UNITS/500 ML IV.SOLN 167 UNITS IV (01:25)
[2021-02-05] MEDS: Ketorolac 30 MG/ML Syringe IV ×4 (02:03→19:36)
[2021-02-05] MEDS: Lactated Ringers 1,000 ML 100 ML IV (03:50)
[2021-02-05] MEDS: Acetaminophen 500 MG Tablet 1000 MG PO ×3 (06:52→17:38)
[2021-02-05] MEDS: Senna/Docusate Sodium 1 Tablet PO (11:42)
[2021-02-05] MEDS: Enoxaparin 40 MG/0.4 ML Syringe SC (13:15)
--- NOTE | 2021-02-05 15:15 | CASEMGMT ---
Social Work Assessment Labor and Delivery Unit Patient Address: [address] [place] [address] [place] [address] Phone number: [phone] Date of Referral: 02.05.2021 Time of Referral: 729 Referred By: Dr. Malin Date of Intervention: 02.05.2021 Time of Intervention: 1514 Reason for Referral: maternal history of THC use, positive early , negative on admission. History obtained from: medical records and mother of baby (MOB) Poli Hobbs; father of baby (FOB) Thomas Reynolds present for part of conversation. Household composition: MOB and FOB live together in a house. Home situation is reported as safe and adequate. Patient's parent/guardian status: MOB is a 20 year old single female, involved with the FOB for the last 3 years. MOB denies any form of abuse, control, intimidation in this relationship. baby is the first child for both. [place], Nirav Reynolds, born on 02.05.2023. Medical History: MOB is G2, P0 to 1 after delivering Nirav via caesarian section. Infant delivered weighing 8 pounds 11 ounces. Apgars 8 and 9 at one and 5 minutes of life. Educational Status: MOB has high school education. Reports ability to read, write, and no issues with learning comprehension. Financial Status: FOB works at [employer] fulltime. MOB is receiving rodriguez assistance through [email or web address], then plans to do work training through [employer] when maternity leave is up.. Infant Supplies: MOB reports to have all needed supplies including bassinet for sleeping, car seat, clothing, diapers, wipes. Planning to breast feed and is getting a breast pump through insurance. Childcare/Caregiver(s): MOB and then help from the FOB. Transportation: No reported issues. Programs/Agencies Involved: Active with [facility] for rodriguez and medical. Had Food but reportedly missed an activity. May reapply. Educated to [facility]. Verbally agreed to [facility] referral. Children Services/Legal Issues: Denies. Behavioral Health Issues: Mental Health History: MOB denies any history. No history of suicidal ideation reported either. Substance Use History: History of marijuana use, with last reported use in July. History of alcohol usage prior to knowledge. FOB referenced MOB drinking whiskey, getting sick which led MOB to take a test. Denies any other illicit drug use history. Smokes tobacco. Family History: Depression and anxiety run in MOB's family, though MOB did not say which family members. FOB acknowledges marijuana use for himself. Drug Screens: Maternal drug screen positive for marijuana on 07.02.2020. Repeat testing in the 3rd trimester on 01.08.2021 and at delivery on 02.03.2021 negative. Family/Social Stressors: No identified stressors. Support Systems: MOB reports to have good support from her mother, FOB's mother, a grandmother, and the FOB. Depression/Shaken Baby/Safe Sleeping : Educated parents to shaken baby preventions, safe sleeping, and mood and anxiety disorders/risk factors/importance of seeking out help and support. ASSESSMENT: Met with MOB in room alone, introducing to self and social work role. During private time, MOB denied any abuse issues in relationship with the FOB, as well as reported okay to talk about all subject matter should the FOB return (had stepped out to get lunch). MOB reports to have needed supplies to care for the baby, to have adequate support at home. FOB will be off of work for a few days, and then there is family around who MOB can call for help if needed. MOB denies continued use of marijuana after first trimester. Educated to recommendation of no marijuana use while breast feeding. MOB expressed understanding. Explored with FOB whether the FOB uses marijuana. FOB reported in the affirmative. Encouraged abstinence, but also encouraged not caring for child while under the influence. Educated to [employer] Act and need to notify children services to substance exposed , that not certain there will be any follow up with family at this point, but if the meconium comes back positive then to expect contact from said agency to check in on how things are going at home. MOB reports to have a positive connection with the baby, to love the baby, and to be thankful the baby was delivered safely. Observed MOB to hold the baby during SW visit. MOB was gentle, appropriate, gazed at and smiled down at the baby. MOB verbally agreed to a [facility] referral. Accepted resource packet for [facility], as well as packet on mood and anxiety disorders. Safe Plan of Care for Baby: MOB reports plan to abstain. Should this change would stop breast feeding. FOB reports would wait until after baby went to bed. Use outside of the house. Discussed with the parents also having a sober person look after the baby. PLAN: MOB and baby to home at discharge. [facility] and children services referrals to be made. Monitor for meconium drug screen results. . -CARIDAD Rain, PEDIATRIC PHYSICIAN
[2021-02-06 01:00] VITALS: BP 120/72; PULSE 76; RESP 16; TEMP 36.3; O2SAT 98
[2021-02-06] MEDS: Acetaminophen 500 MG Tablet 1000 MG PO ×3 (01:02→11:48)
[2021-02-06] MEDS: Ibuprofen 600 MG Tablet PO ×2 (01:02→08:17)
[2021-02-06 05:19] LABS: Hematocrit 29.6 % (37-47); Hemoglobin 9.8 g/dL (12.0-15.0); Mean Corp Hgb Conc 33.1 g/dL (32-36); Mean Corpuscular Hgb 31.4 pg (27.0-32.0); Mean Corpuscular Volume 94.9 fL (81-99); Mean Platelet Vol. 10.4 fl (6.2-12.0); Platelet Count 180 K/mm3 (150-450); RBC Distribution Width CV 14.5 % (11.6-14.6); RBC Distribution Width SD 49.6 fl (35.1-43.9); Red Blood Count 3.12 M/mm3 (4.2-5.4); White Blood Count 15.9 K/mm3 (4.4-11.0)
[2021-02-06 08:16] VITALS: BP 112/67; PULSE 68; RESP 14; TEMP 36.1
--- NOTE | 2021-02-06 09:46 | PN.OBGYN_ITS ---
Subjective Subjective: Patient doing well without complaints. Tolerating PO. Ambulating and voiding without difficulty. Feeding well. Denies chest pain, shortness of breath, calf pain/swelling, fevers, chills, lightheadedness. Objective Data Objective Data Vital Signs: Vital Signs Temp Pulse Resp BP Pulse Ox 97.0 F L 68 14 112/67 98 02/06/21 08:16 02/06/21 08:16 02/06/21 08:16 02/06/21 08:16 02/06/21 01:00 Oxygen Delivery Method Room Air Weight: 216 lb 11.43 oz Body Mass Index (BMI) 37.2 Intake & Output: Intake and Output for Last 24 Hours 02/04/21 02/05/21 02/06/21 23:59 23:59 23:59 Intake Total 6468.52 / 6468.52 2618.34 / 2618.34 Output Total 800 / 800 2450 / 2450 Balance 5668.52 / 5668.52 168.34 / 168.34 Lab / Micro Data Result Diagrams: 02/06/21 05:15 Labs: Laboratory Results - last 24 hr 02/06/21 05:15 WBC 15.9 H RBC 3.12 L Hgb 9.8 L Hct 29.6 L MCV 94.9 MCH 31.4 MCHC 33.1 RDW Std Deviation 49.6 H RDW Coeff of Timi 14.5 Plt Count 180 MPV 10.4 ROS Constitutional Constitutional: Denies fever(s) Cardiovascular Cardiovascular: Denies chest pain, dyspnea or lightheadedness Gastrointestinal Gastrointestinal: Reports abdominal pain; Denies constipation or diarrhea Neurologic Neurologic: Denies dizziness or headache(s) Physical Exam Const alert, oriented x3, no apparent distress, average body habitus, healthy appea ring and well nourished HEENT normocephalic Head and Scalp: atraumatic Eyes PERRL and EOMs intact bilaterally Neck full ROM Lymph Lymphatic: no lymphadenopathy noted Resp normal respiratory effort, no retractions and no use of accessory muscles Cardio regular rate GI soft to palpation, non-tender and non-distended Inspection: incision intact and other (dressing in place) Palpation: other Other Details: fundus firm Extremity normal to inspection and no clubbing, cyanosis or edema Skin no rashes or lesions noted Neuro no focal motor deficits and no sensory deficits noted Psych mental status grossly normal, affect normal and speech normal Assessment & Plan (1) delivery delivered: COMMENT: augmentation for Cat II FHT PLAN: s/p LTCS PPD # 1 1. routine post care 2. breast feeding- support given 3. rh positive 4. rubella immune
--- NOTE | 2021-02-06 09:52 | PCM.DC ---
Discharge Instructions Diet Discharge Diet: No restrictions Activity Discharge Activity: May Not Drive (for 2 weeks or while taking narcotic pain meds.), May Shower and May Take a Tub Bath (in 7 days.) May resume sexual activity in: 4-6 weeks Lifting Restrictions: 20 pounds Additional Activity Instructions:: Nothing in the vagina for 4-6 weeks. You may return to work/school in 6 weeks. Dressing / Incision Call your doctor if your incision/area has: Continuous Slow Oozing, Sudden Increased Bleeding, Increased Pain/ Swelling, Increased Redness and Foul Smelling Discharge Call your doctor if you observe: Fever of 101 or Higher Suture Line Care: Avoid Pulling/Pushing and Avoid Pinching/Bending Follow Up Care Please Follow Up With: Magda Malin MD When: 2 weeks for incision check Test Results: Test results from this visit will be discussed in further detail at your follow-up appointment, if applicable. Discharge Plan Admission Admit Date/Time: 02/03/21 13:33 Primary Reason for Your Visit: Induction for Cat II Attending Provider: Magda Malin Primary Care Provider: Care PhysicianElinor Primary Instructions Patient Instructions: After a Discharge Orders/Prescriptions Prescriptions: New naproxen [naproxen] 500 MG tablet 500 mg PO BID PRN PRN (Reason: Pain) Qty: 30 RF: 1 oxycodone 5 mg capsule 5 mg PO Q6H PRN (Reason: pain) 7 Days Qty: 15 RF: 0 Continued PNV-DHA 27 mg iron-1 mg -300 mg capsule 1 cap PO DAILY RF: 0 Discontinued evening primrose oil [Evening [place]] 500 mg Capsule RF: 0 Referrals / Follow Up: Care PhysicianElinor Primary [Primary Care Provider] - Disposition Disposition (needs filled in before D/C Order can be placed): Home, self care
[2021-02-06] MEDS: Enoxaparin 40 MG/0.4 ML Syringe SC (10:35)
[2021-02-06] MEDS: Senna/Docusate Sodium 1 Tablet PO (10:35)
--- NOTE | 2021-02-08 15:03 | CASEMGMT ---
ocial Work Labor and Delivery Unit Help Me Grow referral completed via the [facility]'s secure web based referral system. Called [facility] ([facility]) [phone], and spoke with Mery at extension [phone]. 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 Reported father of baby endorsement of marijuana use. Brief maternal and histories provided, including strengths present for family. Meconium drug screen pending for baby. No other services requested or indicated, other than monitoring for meconium drug screen. -ARMINDA Rain, COMMUNITY ENGAGEMENT COORDINATOR
== END 2021-02-06 11:37 | disposition home or self-care (01) | DRG 540 ==
LOC: WPOUT 13:34 → WP 02-04 10:34
PROVIDERS: Admitting Provider Obstetrics & Gynecology; Visit Provider Obstetrics & Gynecology
DX: O76 Abnormality in fetal heart rate and rhythm complicating labor and delivery (principal); O99.824 Streptococcus B carrier state complicating childbirth; O99.334 Smoking (tobacco) complicating childbirth; F17.210 Nicotine dependence, cigarettes, uncomplicated; Z3A.40 40 weeks gestation of pregnancy; Z37.0 Single live birth
CPT/HCPCS: 59025; 59050; 80307; 85025; 85027; 86850; 86900; 86901; 99218; 99251; J7030; J7120; G0378; G0463; J2405

== ENCOUNTER 2021-02-07 03:25 | Emergency (ER) | payer MEDICAID, SELFPAY ==
[2021-02-03 11:29] VITALS: BMI 37.2
[2021-02-07 03:27] VITALS: BP 143/71; PULSE 64; RESP 19; TEMP 36.2; O2SAT 99; BMI 42.8
--- NOTE | 2021-02-07 03:30 | ED.RN ---
NO OLD EKGS IN MUSE
[2021-02-07 03:57] VITALS: O2SAT 97
--- NOTE | 2021-02-07 03:57 | CT_ITS ---
STUDY: CT ABDOMEN AND PELVIS WITH CONTRAST REASON FOR EXAM: Female, 20 years old. Abdominal pain RADIATION DOSAGE (If Supplied By Facility): CTDIvol = ( 18.06 ) mGy, DLP = ( 1715.90 ) mGycm TECHNIQUE: Transaxial images were obtained from the dome of the diaphragm to the symphysis pubis without oral contrast. IV 100mL Isovue-370 was administered. Sagittal and coronal images were reconstructed. Individualized dose optimization techniques were used for this CT. COMPARISON: None. FINDINGS: The visualized lung bases demonstrate trace left pleural effusion.. The visualized portions of the heart are within normal limits. Normal liver. Mild periportal edema. The gallbladder is contracted. Normal spleen. Normal pancreas. Normal bilateral adrenal glands. Normal right kidney. Normal left kidney. Normal visualized stomach. Normal small intestine. Normal colon. The appendix is visualized and appears normal. Normal abdominal aorta. Normal inferior vena cava. Normal retroperitoneum. Normal urinary bladder. The uterus is enlarged and heterogeneous in density and demonstrates several internal gas locules. Dilated uterine vessels. Trace adjacent pelvic free fluid. There is small gas locules involving the anterior abdominal wall with areas of fat stranding. Normal osseous structures. CT/Abdomen/Pelvis W IV Cont ONLY IMPRESSION: Enlarged likely uterus with small internal gas locules. Scattered gas locules also visualized within the anterior abdominal wall consistent with section and delivery. No intra-abdominal free air visualized. Endometritis could appear similar and not excluded. Electronically Signed: Benjamin Walton MD at 5:25 EDT Tel , Service support ,
--- NOTE | 2021-02-07 03:57 | EKG12_ITS ---
Test Reason : CP Blood Pressure : / mmHG Vent. Rate : 062 BPM Atrial Rate : 062 BPM P-R Int : 154 ms QRS Dur : 082 ms QT Int : 376 ms P-R-T Axes : 000 071 030 degrees QTc Int : 381 ms Normal sinus rhythm Normal ECG Confirmed by OSCAR PAGE, TAMARA ([id number]), science editor YOLY BRYANT ([id number]) on 02/08/2021 1:18:08 PM Referred By: HILL Confirmed By:TAMARA MOORE MD
--- NOTE | 2021-02-07 03:58 | CT_ITS ---
STUDY: CTA CHEST REASON FOR EXAM: Female, 20 years old. Dyspnea RADIATION DOSAGE (If Supplied By Facility): CTDIvol = ( 18.06 ) mGy, DLP = ( 1715.90 ) mGycm TECHNIQUE: The examination was performed with the intravenous administration of IV 100mL Isovue-370. Post-processing of the angiographic images was performed, with multiplanar reformation and 3D reconstruction. Individualized dose optimization techniques were used for this CT. COMPARISON: None. FINDINGS: Normal enhancement of the main pulmonary artery and right and left pulmonary arteries. Normal enhancement of the bilateral peripheral pulmonary arteries. There is no demonstrated pulmonary embolism. Normal thoracic aorta and visualized great vessels. There is no demonstrated aortic dissection. Normal heart and pericardium. Normal mediastinum. Normal hilar regions. Normal visualized trachea and bronchi. The lungs demonstrate trace left pleural effusion. Normal pleura. Normal chest wall structures. Normal osseous structures. Normal visualized upper abdomen. CT/CTA Chest W/WO Contrast IMPRESSION: No demonstrated pulmonary embolism or arterial dissection. No focal lung consolidative changes. Trace left pleural effusion. Electronically Signed: Benjamin Walton MD at 5:29 EDT Tel , Service support ,
--- NOTE | 2021-02-07 04:02 | EDS_ITS ---
HPI History of Present Illness Chief Complaint: Chest Pain Informant: patient and spouse/S.O. Onset/Context/Timing Onset: Today and Hours (2) Activity at onset: sudden Timing: Continuous Quality: Positive for Sharp Location: Substernal Worsened By: Nothing Relieved By: Nothing Associated Symptoms: Positive for Nausea, Dyspnea and Palpitations; Negative for Vomiting, Diaphoresis, Cough, Fever, Lightheadedness and Acid Reflux Narrative Narrative: Patient presents with chest pain that began approximately 2 hours prior to arrival. Patient states the pain is sharp and is localized to the substernal area. Patient states nothing makes it better nothing makes it worse. Patient admits to some nausea and shortness of breath with this. Patient had a recent 2 days ago. Patient denies any fevers or chills. Patient states she did have an episode today where she was seeing spots in her vision. Patient states this lasted a few seconds then resolved. Patient admits to a mild headache. Patient admits to some palpitations where she feels like her heart is skipping beats. PFSH PFS Medical History delivery delivered No significant medical problems Allergy/AdvReac Type Severity Reaction Status Date / Time latex AdvReac Rash Verified 02/07/21 03:31 Surgical History No significant past surgical history Social History household members: family housing: house current occupational status: employed current occupation: [employer] pets and animals: Yes Smoking Status: Current every day smoker second hand exposure: Yes alcohol intake: current substance use type: does not use seatbelt use: always do you feel safe at home: Yes ROS ROS ED Constitutional Constitutional ED: Denies chills or fever(s) Eyes Eyes: Reports change in vision; Denies blurry vision ENT ENT ED: Denies rhinorrhea or sore throat Cardiovascular Cardiovascular: Reports chest pain and palpitations Respiratory/Chest Respiratory/Chest: Reports dyspnea; Denies cough Gastrointestinal Gastrointestinal: Reports nausea; Denies vomiting Genitourinary Genitourinary ED: Denies dysuria or hematuria Musculoskeletal Musculoskeletal: Reports back pain; Denies neck pain Integumentary Denies abscess or rash Neurologic Neurologic: Reports headache(s); Denies weakness Allergic/Immunologic Allergic/Immunologic ED: Denies mouth swelling or urticaria EXAM Physical Exam Const Vital Signs: 02/07/21 03:27 02/07/21 03:35 02/07/21 03:57 Temperature 97.1 F L Temperature Source Temporal Pulse Rate 64 Respiratory Rate 19 H Respiratory Effort Short of Breath Blood Pressure 143/71 H Blood Pressure Mean 95 Pulse Ox 99 97 Oxygen Delivery Method Room Air Room Air 02/07/21 05:26 02/07/21 05:57 Temperature Temperature Source Pulse Rate 52 L 60 Respiratory Rate 21 H 7 L Respiratory Effort Blood Pressure 136/78 H 131/83 H Blood Pressure Mean 97 Pulse Ox 97 99 Oxygen Delivery Method Room Air Positive well nourished, well developed and obese General Appearance ED: well developed Nutritional Appearance: obese HEENT Reports moist mucous membranes Neck supple and no JVD Resp normal respiratory effort and clear to auscultation bilaterally Effort and Inspection: respiratory distress Cardio regular rate and regular rhythm GI normal to inspection, nondistended, normoactive bowel sounds, soft to palpation and non-distended Palpation: other Other Details: There is some tenderness over the incision. There is slight erythema. There is no warmth. There is no induration. Extremity normal to inspection General Extremety ED: Negative for tenderness Neuro oriented x3, CN's II-XII intact bilaterally and no sensory deficits noted Sensorium / Orientation: awake and alert Motor Exam: strength 5/5 throughout MDM MDM MDM Narrative Medical decision making narrative: Patient was given aspirin. Patient was given IV fluids. EKG was obtained. On my interpretation, it showed a normal sinus rhythm with a rate of 62. MS interval, QRS interval, and QTc intervals were all normal. [place] was normal. There are no acute ST or T wave changes. CBC shows a slight leukocytosis of 13.6. Comprehensive metabolic profile and lactate were obtained were all within normal limits. Urinalysis does not show any evidence of urinary tract infection. CT scan of the abdomen and pelvis was obtained with IV contrast. There is status post changes. CTA of the chest was obtained. There is no evidence of pulmonary embolism. Patient refused COVID-19 rapid antigen test. Patient states she had one done recently and was negative. Patient was advised of her findings. Patient has a HEART score of 1. Patient was advised that this is low risk for acute cardiac event. Patient was instructed to follow-up with her METER SUPERVISOR in 3 to 5 days. Patient was instructed to return if worse in any way. Patient understood and was agreeable with the plan. All questions were answered. Lab Data Attestation: I reviewed the patient's lab results. Labs: Laboratory Results - last 24 hr 02/07/21 02/07/21 02/07/21 03:40 03:40 04:25 WBC 13.6 H RBC 3.11 L Hgb 9.6 L Hct 29.4 L MCV 94.5 MCH 30.9 MCHC 32.7 RDW Std Deviation 48.4 H RDW Coeff of [place] 14.1 Plt Count 210 MPV 10.8 Immature Gran % (Auto) 0.600 Neut % (Auto) 73.7 H Lymph % (Auto) 18.2 L [place] % (Auto) 6.0 Eos % (Auto) 1.0 Baso % (Auto) 0.5 Absolute Neuts (auto) 10.0 H Absolute Lymphs (auto) 2.48 Nucleated RBC % 0 Sodium 142 Potassium 4.2 Chloride 110 H Carbon Dioxide 26.0 Anion Gap 6 BUN 23 H Creatinine 1.09 H Estim Creat Clear Calc 69.91 Est GFR (MDRD) Af Amer 80 Est GFR (MDRD) Non-Af 66 BUN/Creatinine Ratio 21.1 H Glucose 78 Lactic Acid 1.0 Calcium 8.9 Total Bilirubin 0.20 AST 35 ALT 26 Alkaline Phosphatase 123 H Total Protein 5.8 L Albumin 2.1 L Globulin 3.7 Albumin/Globulin Ratio 0.6 L Urine Color Urine Clarity Urine pH Ur Specific [place] Urine Protein Urine Glucose (UA) Urine Ketones Urine Occult Blood Urine Nitrite Urine Bilirubin Urine Urobilinogen Ur Leukocyte Esterase Urine RBC Urine WBC Ur Squamous Epith Cells Ur Transition Epith Cell Urine Bacteria Urine Mucus 02/07/21 04:25 WBC RBC Hgb Hct MCV MCH MCHC RDW Std Deviation RDW Coeff of [place] Plt Count MPV Immature Gran % (Auto) Neut % (Auto) Lymph % (Auto) [place] % (Auto) Eos % (Auto) Baso % (Auto) Absolute Neuts (auto) Absolute Lymphs (auto) Nucleated RBC % Sodium Potassium Chloride Carbon Dioxide Anion Gap BUN Creatinine Estim Creat Clear Calc Est GFR (MDRD) Af Amer Est GFR (MDRD) Non-Af BUN/Creatinine Ratio Glucose Lactic Acid Calcium Total Bilirubin AST ALT Alkaline Phosphatase Total Protein Albumin Globulin Albumin/Globulin Ratio Urine Color Yellow Urine Clarity Cloudy Urine pH 6.0 Ur Specific [place] 1.010 Urine Protein 30 H Urine Glucose (UA) Normal Urine Ketones Negative Urine Occult Blood 250 H Urine Nitrite Negative Urine Bilirubin Negative Urine Urobilinogen Normal Ur Leukocyte Esterase 100 H Urine RBC 10-25 SEEN Urine WBC 5-10 SEEN Ur Squamous Epith Cells 0-5 SEEN Ur Transition Epith Cell 0-5 SEEN Urine Bacteria 0 SEEN Urine Mucus 0 SEEN Radiography Diagnostic Testing: Radiology Impression Abdomen/Pelvis CT 02/07/21 03:57 IMPRESSION: Enlarged likely uterus with small internal gas locules. Scattered gas locules also visualized within the anterior abdominal wall consistent with section and delivery. No intra-abdominal free air visualized. Endometritis could appear similar and not excluded. Electronically Signed: Benjamin Walton MD at 5:25 EDT Tel , Service support , Chest CTA 02/07/21 03:58 IMPRESSION: No demonstrated pulmonary embolism or arterial dissection. No focal lung consolidative changes. Trace left pleural effusion. Electronically Signed: Benjamin Walton MD at 5:29 EDT Tel , Service support , EKG Initial EKG: Attestation: I personally reviewed and interpreted this EKG as follows: Interpretation: Sinus Rhythm (62) and No Acute Injury Pattern Prior: No Prior Discharge Plan Triage Chief Complaint: Chest Pain ED Provider: Orestes Sierra Dx/Rx/DC Orders Clinical Impression: Chest pain of uncertain etiology Instructions: ED Chest Pain, Uncertain Cause Primary Care Provider: Care Physician,No Primary Referrals: Magda Malin MD [STAFF PHYSICIAN] - 3-5 Days Care Physician,No Primary [Primary Care Provider] - Disposition Disposition: Home, self care Discharge Date/Time: 02/07/21 05:57
[2021-02-07 04:06] LABS: Absolute Lymphocyte Count 2.48 X10^3/uL (0.83-4.51); Basophil# 0.07 X10^3/uL; Basophil% 0.5 % (0-1); Eosinophil# 0.14 X10^3/uL; Hematocrit 29.4 % (37-47); Hemoglobin 9.6 g/dL (12.0-15.0); Lymphocyte # 2.48 X10^3/ul (0.83-4.51); Lymphocyte % 18.2 % (19-41); Mean Corp Hgb Conc 32.7 g/dL (32-36); Mean Corpuscular Hgb 30.9 pg (27.0-32.0); Mean Corpuscular Volume 94.5 fL (81-99); Mean Platelet Vol. 10.8 fl (6.2-12.0); Monocyte# 0.81 X10^3/uL; NRBC Flagged by Analyzer 0 % (0-5); Neutrophil # 10.01 X10^3/uL (2.7-7.7); Neutrophil % 73.7 % (47-70); Platelet Count 210 K/mm3 (150-450); RBC Distribution Width CV 14.1 % (11.6-14.6); RBC Distribution Width SD 48.4 fl (35.1-43.9); Red Blood Count 3.11 M/mm3 (4.2-5.4); White Blood Count 13.6 K/mm3 (4.4-11.0)
[2021-02-07 04:18] LABS: ALB/GLOB Ratio 0.6 RATIO (0.9-2.4); AST(SGOT) 35 U/L (15-37); Alanine Aminotransfer ALT/SGPT 26 U/L (13-56); Albumin, Serum 2.1 g/dL (3.2-5.0); Alkaline Phosphatase 123 U/L (45-117); Anion Gap 6 (5-15); BUN 23 mg/dL (7-18); BUN/Creat Ratio 21.1 RATIO (10-20); Calcium,Total 8.9 mg/dL (8.5-10.1); Chloride 110 mmol/L (98-107); Creatinine, Serum 1.09 mg/dL (0.55-1.02); EST Glomerular Filtration Rate 66 mL/min (>60); Est Glom Filt Rate - Afr Amer 80 mL/min (>60); Estimated Creatinine Clearance 69.91 ml/min; Globulin 3.7 g/dL (2.2-4.2); Glucose 78 mg/dL (74-106); Potassium 4.2 mmol/L (3.5-5.1); Protein, Total 5.8 g/dL (6.4-8.2); Sodium Level 142 mmol/L (136-145)
[2021-02-07] MEDS: Aspirin 81 MG TAB.CHEW 324 MG PO (04:23)
[2021-02-07] MEDS: 0.9% Normal Saline 1,000 ML 1000 ML IV (04:23)
[2021-02-07 04:35] LABS: Bacteria 0 SEEN /hpf (None Seen); Color, Urine Yellow (Yellow); Glucose, Dipstick Normal (Normal); Ketone-Dipstick Negative (Negative); Leukocyte Esterase-Dipstick 100 /ul (Negative); Mucous, Urine 0 SEEN /hpf (<or=2+); Nitrite-Dipstick Negative (Negative); Occult Blood-Urine 250 /ul (Negative); Protein-Dipstick 30 mg/dl (Negative); Urine Bilirubin Dipstick Negative (Negative); Urine Clarity Cloudy (Clear); Urine Urobilinogen Normal (Normal)
[2021-02-07 04:41] LABS: Red Blood Cells-Urine 10-25 SEEN /hpf (0-5); Squamous Epithelial Cells - UA 0-5 SEEN /hpf (5-10); Transitional Epithelial - Ur 0-5 SEEN /hpf (0-5); White Blood Cells 5-10 SEEN /hpf (0-5)
[2021-02-07 05:26] VITALS: BP 136/78; PULSE 52; RESP 21; O2SAT 97
--- NOTE | 2021-02-07 05:28 | ED.RN ---
pt refusing COVID test. dr Sierra made aware.
[2021-02-07] MEDS: Morphine 4 MG/ML Syringe IV (05:53)
[2021-02-07 05:57] VITALS: BP 131/83; PULSE 60; RESP 7; O2SAT 99
== END 2021-02-07 05:57 | disposition home or self-care (01) ==
PROVIDERS: Emergency Provider Emergency Medicine
DX: R07.9 Chest pain, unspecified (principal); E66.9 Obesity, unspecified; F17.200 Nicotine dependence, unspecified, uncomplicated
CPT/HCPCS: 71275; 74177; 80053; 81001; 83605; 85025; 93005; 96361; 96374; 99285; J7030; Q9967; A4216

== ENCOUNTER → 2021-03-24 | Outpatient (CLI) | payer MEDICAID, SELFPAY ==
[2021-03-24 14:16] VITALS: BMI 42.8
[2021-04-01 14:30] LABS: HPV APTIMA, High Risk Negative (Negative); HPV Reflexed? YES, CHARGE PATIENT
== END | disposition home or self-care (01) ==
LOC: LABSPEC 15:42
PROVIDERS: Visit Provider Obstetrics & Gynecology
DX: Z12.4 Encounter for screening for malignant neoplasm of cervix (principal)
CPT/HCPCS: 87624; 88175; G0145